=== PATIENT | female | born 1965 | race African-American/Black ===

== ENCOUNTER 2016-09-22 13:06 | Emergency (ER) | payer MEDICAID ==
[~2016-09-22] VITALS: Ht 172.7 cm; Wt 69.0 kg
[~2016-09-22 13:06] MED LIST: ABILIFY; ALBU25PO2 INH; FLUT1DIS5 INH; GUAI600T PO; LEVO500T15 PO; LURA80TA PO; NICO1PAT15 TD; OMEP20CA4 PO; P20 PO; SPIRIVA; TRAZ-129 PO
[2016-09-22 13:36] VITALS: BP 115/70
== END 2016-09-22 15:00 | disposition left against medical advice (07) ==
LOC: ER 13:06
DX: R05 Cough (principal); R09.81 Nasal congestion; Z53.21 Procedure and treatment not carried out due to patient leaving prior to being seen by health care provider

== ENCOUNTER 2017-12-28 17:45 | Emergency (ER) | payer OTHER ==
[~2017-12-28] VITALS: Ht 167.6 cm; Wt 68.0 kg
[~2017-12-28 17:45] MED LIST changes: -ABILIFY; +ARIP2TAB3 PO; -FLUT1DIS5 INH; -GUAI600T PO; +GUAI600T44 PO; -LEVO500T15 PO; -LURA80TA PO; -NICO1PAT15 TD; -SPIRIVA; +TIOT18CA3 INH; -TRAZ-129 PO; +TRAZ-212 PO; +VARE1TAB21 PO
[2017-12-28 17:57] VITALS: BP 126/69
== END 2017-12-28 18:24 | disposition home or self-care (01) ==
LOC: ER 17:45
DX: H92.02 Otalgia, left ear (principal); S00.462A Insect bite (nonvenomous) of left ear, initial encounter; J44.9 Chronic obstructive pulmonary disease, unspecified; F31.9 Bipolar disorder, unspecified; W57.XXXA Bitten or stung by nonvenomous insect and other nonvenomous arthropods, initial encounter; Y93.9 Activity, unspecified; Y92.9 Unspecified place or not applicable; Z88.2 Allergy status to sulfonamides
CPT/HCPCS: 99283

== ENCOUNTER 2018-01-11 21:23 | Emergency (ER) | payer MEDICAID, OTHER ==
[~2018-01-11] VITALS: Ht 167.6 cm; Wt 69.0 kg
[2018-01-12] MEDS ORDERED: KETOROLAC 60MG/2ML VIAL IM ONE (01:30)
[2018-01-12 03:15] VITALS: BP 98/59
== END 2018-01-12 03:17 | disposition home or self-care (01) ==
LOC: ER 21:23
DX: H60.91 Unspecified otitis externa, right ear (principal); J44.9 Chronic obstructive pulmonary disease, unspecified; F31.9 Bipolar disorder, unspecified; F17.200 Nicotine dependence, unspecified, uncomplicated; Z88.2 Allergy status to sulfonamides; Z79.899 Other long term (current) drug therapy
CPT/HCPCS: 87070; 87430; 96372; 99284; J1885

== ENCOUNTER 2018-01-17 15:58 | Emergency (ER) | payer OTHER ==
[~2018-01-17] VITALS: Ht 167.6 cm; Wt 73.0 kg
[2018-01-17 16:00] VITALS: BP 100/76
== END 2018-01-17 19:27 | disposition left against medical advice (07) ==
LOC: ER 15:58
DX: H92.03 Otalgia, bilateral (principal)
CPT/HCPCS: 99281

== ENCOUNTER 2018-09-24 23:58 | Emergency (ER) | payer MEDICAID, OTHER ==
[~2018-09-24] VITALS: Ht 167.6 cm; Wt 75.0 kg
[2018-09-25] MEDS ORDERED: ASPIRIN 81MG TABLET PO ONE (01:30)
[2018-09-25 01:47] LABS: BASOPHILS % 0.7 % (0.0-2.0); EOSINOPHILS % 2.3 % (0.0-5.0); HEMATOCRIT. 38.6 % (36.0-48.0); HEMOGLOBIN. 12.8 g/dL (12.0-16.0); LYMPHOCYTES % 31.5 % (20.0-50.0); MEAN CORPUSCULAR VOLUME 93.7 fL (81.0-99.0); MEAN PLATELET VOLUME 7.5 fl (7.4-10.4); MONOCYTES % 6.1 % (2.0-8.0); NEUTROPHILS % 59.4 % (40.0-76.0); PLATELET 218 x1000/uL (130-400); RED BLOOD CELL COUNT 4.12 mill/uL (4.2-5.4); RED CELL DISTRIBUTION WIDTH 14.6 % (11.6-14.6)
[2018-09-25 01:50] LABS: CHLORIDE 111 mEq/L (98-107)
[2018-09-25] MEDS ORDERED: IPRATROPIUM BROMIDE (0.02%) 0.5MG/2.5ML NEB HHN STA ×2 (03:02→05:24)
[2018-09-25] MEDS ORDERED: PREDNISONE 20MG TABLET PO STA (03:02)
[2018-09-25] MEDS ORDERED: ALBUTEROL (0.083%) 2.5MG/3ML NEB HHN STA ×2 (03:02→05:24)
[2018-09-25 06:58] VITALS: BP 117/48
== END 2018-09-25 07:00 | disposition home or self-care (01) ==
LOC: ER 23:58
DX: J44.1 Chronic obstructive pulmonary disease with (acute) exacerbation (principal); F17.200 Nicotine dependence, unspecified, uncomplicated; F31.9 Bipolar disorder, unspecified; Z98.890 Other specified postprocedural states; Z88.2 Allergy status to sulfonamides; Z79.899 Other long term (current) drug therapy
CPT/HCPCS: 36415; 71045; 80053; 83880; 84484; 85025; 93005; 94644; 99285; J7512; J7611; Z7610

== ENCOUNTER 2018-10-05 19:10 | Emergency (ER) | payer OTHER ==
[~2018-10-05] VITALS: Ht 162.6 cm; Wt 69.0 kg
[2018-10-05] MEDS ORDERED: IPRATROPIUM BROMIDE (0.02%) 0.5MG/2.5ML NEB HHN STA (23:16)
[2018-10-05] MEDS ORDERED: MAGNESIUM 2 G PREMIX 50 ML IV STA (23:16)
[2018-10-05] MEDS ORDERED: METHYLPREDNISOLONE SOD SUCC 125 MG/2 ML VIAL IV STA (23:16)
[2018-10-05] MEDS ORDERED: ALBUTEROL (0.083%) 2.5MG/3ML NEB HHN STA (23:16)
[2018-10-06 00:05] LABS: HEMOGLOBIN 11.6 g/dL (12.0-16.0); MEAN CORPUSCULAR HEMOGLOBIN 31.7 pg (28.0-32.0); MEAN CORPUSCULAR VOLUME 92.8 fL (81.0-99.0); PLATELET 223 x1000/uL (130-400); RED BLOOD CELL COUNT 3.67 mill/uL (4.2-5.4); RED CELL DISTRIBUTION WIDTH 14.4 % (11.6-14.6)
[2018-10-06 00:10] LABS: CHLORIDE 107 mEq/L (98-107)
[2018-10-06 03:53] VITALS: BP 116/70
== END 2018-10-06 04:00 | disposition home or self-care (01) ==
LOC: ER 19:10
DX: J44.1 Chronic obstructive pulmonary disease with (acute) exacerbation (principal); F17.210 Nicotine dependence, cigarettes, uncomplicated
CPT/HCPCS: 36415; 71045; 80053; 84484; 85027; 93005; 94644; 96365; 96366; 96375; 99285; J2930; J3475; J7611; Z7610

== ENCOUNTER 2018-11-25 17:44 | Emergency (ER) | payer OTHER ==
[~2018-11-25] VITALS: Ht 167.6 cm; Wt 72.0 kg
[~2018-11-25 17:44] MED LIST changes: -TRAZ-212 PO; +TRAZ-251 PO
[2018-11-25] MEDS ORDERED: ASPIRIN 81MG TABLET PO ONE (18:15)
[2018-11-25] MEDS ORDERED: IPRATROPIUM BROMIDE (0.02%) 0.5MG/2.5ML NEB HHN STA (18:45)
[2018-11-25] MEDS ORDERED: METHYLPREDNISOLONE SOD SUCC 125 MG/2 ML VIAL IV STA (18:45)
[2018-11-25] MEDS ORDERED: ALBUTEROL (0.083%) 2.5MG/3ML NEB HHN STA (18:45)
[2018-11-25 19:11] LABS: BASOPHILS % 0.8 % (0.0-2.0); EOSINOPHILS % 2.6 % (0.0-5.0); HEMATOCRIT. 39.9 % (36.0-48.0); HEMOGLOBIN. 13.3 g/dL (12.0-16.0); LYMPHOCYTES % 42.4 % (20.0-50.0); MEAN CORPUSCULAR HEMOGLOBIN 31.3 pg (28.0-32.0); MEAN CORPUSCULAR VOLUME 94.3 fL (81.0-99.0); MEAN PLATELET VOLUME 8.2 fl (7.4-10.4); MONOCYTES % 5.4 % (2.0-8.0); NEUTROPHILS % 48.8 % (40.0-76.0); PLATELET 235 x1000/uL (130-400); RED BLOOD CELL COUNT 4.24 mill/uL (4.2-5.4); RED CELL DISTRIBUTION WIDTH 13.9 % (11.6-14.6)
[2018-11-25 19:24] LABS: CHLORIDE 106 mEq/L (98-107)
[2018-11-25 20:06] VITALS: BP 107/58
== END 2018-11-25 20:19 | disposition home or self-care (01) ==
LOC: ER 17:44
DX: J45.901 Unspecified asthma with (acute) exacerbation (principal); F31.9 Bipolar disorder, unspecified; J44.9 Chronic obstructive pulmonary disease, unspecified; F17.200 Nicotine dependence, unspecified, uncomplicated; Z79.899 Other long term (current) drug therapy; Z88.2 Allergy status to sulfonamides
CPT/HCPCS: 36415; 71045; 80053; 83880; 84484; 85025; 93005; 94644; 96374; 99285; J2930; J7611

== ENCOUNTER 2018-12-14 19:34 | Emergency (ER) | payer OTHER ==
[~2018-12-14] VITALS: Ht 170.2 cm; Wt 73.0 kg
[2018-12-14] MEDS ORDERED: ALBUTEROL (0.083%) 2.5MG/3ML NEB HHN STA (20:06)
[2018-12-14] MEDS ORDERED: IPRATROPIUM BROMIDE (0.02%) 0.5MG/2.5ML NEB HHN STA (20:06)
[2018-12-14] MEDS ORDERED: METHYLPREDNISOLONE SOD SUCC 125 MG/2 ML VIAL IV STA (20:06)
[2018-12-14] MEDS ORDERED: NITROGLYCERIN 0.4MG TABLET SL SL PRN (20:15)
[2018-12-14] MEDS ORDERED: ASPIRIN 81MG TABLET PO ONE (20:15)
[2018-12-14 20:33] LABS: CHLORIDE 106 mEq/L (98-107)
[2018-12-14 20:35] LABS: BASOPHILS % 1.2 % (0.0-2.0); EOSINOPHILS % 2.7 % (0.0-5.0); HEMATOCRIT. 39.7 % (36.0-48.0); HEMOGLOBIN. 13.5 g/dL (12.0-16.0); MEAN CORPUSCULAR HEMOGLOBIN 32.2 pg (28.0-32.0); MEAN CORPUSCULAR VOLUME 94.5 fL (81.0-99.0); MEAN PLATELET VOLUME 8.3 fl (7.4-10.4); MONOCYTES % 6.1 % (2.0-8.0); PLATELET 232 x1000/uL (130-400); RED CELL DISTRIBUTION WIDTH 13.6 % (11.6-14.6)
[2018-12-14 22:56] VITALS: BP 110/74
== END 2018-12-14 23:05 | disposition home or self-care (01) ==
LOC: ER 19:34
DX: J44.9 Chronic obstructive pulmonary disease, unspecified (principal); R07.89 Other chest pain; R06.02 Shortness of breath; F31.9 Bipolar disorder, unspecified; Z79.899 Other long term (current) drug therapy; Z88.2 Allergy status to sulfonamides
CPT/HCPCS: 36415; 71045; 80053; 83880; 84484; 85025; 93005; 96374; 99284; J2930

== ENCOUNTER 2019-03-17 07:39 | Emergency (ER) | payer SELFPAY ==
[~2019-03-17] VITALS: Ht 170.2 cm; Wt 82.0 kg
[2019-03-17] MEDS ORDERED: ALBUTEROL (0.083%) 2.5MG/3ML NEB HHN STA (08:18)
[2019-03-17] MEDS ORDERED: PREDNISONE 20MG TABLET PO STA (08:18)
[2019-03-17] MEDS ORDERED: IPRATROPIUM BROMIDE (0.02%) 0.5MG/2.5ML NEB HHN STA (08:18)
[2019-03-17 09:30] LABS: BASOPHILS % 0.9 % (0.0-2.0); EOSINOPHILS % 0.7 % (0.0-5.0); HEMATOCRIT. 39.8 % (36.0-48.0); HEMOGLOBIN. 13.5 g/dL (12.0-16.0); LYMPHOCYTES % 23.7 % (20.0-50.0); MONOCYTES % 7.5 % (2.0-8.0); NEUTROPHILS % 67.2 % (40.0-76.0); PLATELET 279 x1000/uL (130-400); RED BLOOD CELL COUNT 4.23 mill/uL (4.2-5.4); RED CELL DISTRIBUTION WIDTH 13.9 % (11.6-14.6)
[2019-03-17 09:31] LABS: CHLORIDE 104 mEq/L (98-107)
[2019-03-17 12:33] VITALS: BP 134/113
== END 2019-03-17 12:34 | disposition home or self-care (01) ==
LOC: ER 07:53
DX: J44.1 Chronic obstructive pulmonary disease with (acute) exacerbation (principal); I10 Essential (primary) hypertension; F17.210 Nicotine dependence, cigarettes, uncomplicated; Z79.899 Other long term (current) drug therapy; Z88.2 Allergy status to sulfonamides
CPT/HCPCS: 36415; 71045; 80053; 83880; 84484; 85025; 93005; 94640; 99284; 99406; J7512; J7611; Z7610

== ENCOUNTER 2019-05-10 11:24 | Emergency (ER) | payer SELFPAY ==
[~2019-05-10] VITALS: Ht 167.6 cm; Wt 65.7 kg
[2019-05-10] MEDS ORDERED: KETOROLAC 15MG/ML VIAL IM ONE (14:15)
[2019-05-10 16:57] VITALS: BP 125/79
== END 2019-05-10 16:59 | disposition home or self-care (01) ==
LOC: ER 11:24
DX: J06.9 Acute upper respiratory infection, unspecified (principal); J44.9 Chronic obstructive pulmonary disease, unspecified; I10 Essential (primary) hypertension; M79.10 Myalgia, unspecified site; R53.83 Other fatigue; R07.0 Pain in throat; Z88.2 Allergy status to sulfonamides; Z79.899 Other long term (current) drug therapy
CPT/HCPCS: 71045; 87070; 87430; 87804; 96372; 99284; J1885

== ENCOUNTER 2019-08-01 05:11 | Emergency (ER) | payer SELFPAY ==
[~2019-08-01] VITALS: Ht 170.2 cm; Wt 66.0 kg
[2019-08-01 06:36] VITALS: BP 149/98
== END 2019-08-01 06:37 | disposition home or self-care (01) ==
LOC: ER 05:54
DX: I10 Essential (primary) hypertension (principal); Z76.0 Encounter for issue of repeat prescription; J44.9 Chronic obstructive pulmonary disease, unspecified; Z88.2 Allergy status to sulfonamides; Z79.899 Other long term (current) drug therapy
CPT/HCPCS: 99283

== ENCOUNTER 2020-02-15 16:27 | Emergency (ER) | payer MEDICAID ==
[~2020-02-15] VITALS: Ht 167.6 cm; Wt 65.7 kg
[2020-02-15] MEDS ORDERED: IPRATROPIUM BROMIDE (0.02%) 0.5MG/2.5ML NEB HHN STA (16:45)
[2020-02-15] MEDS ORDERED: ALBUTEROL (0.083%) 2.5MG/3ML NEB HHN STA (16:45)
[2020-02-15] MEDS ORDERED: PREDNISONE 20MG TABLET PO STA (16:45)
[2020-02-15] MEDS ORDERED: ACETAMINOPHEN WITH CODEINE 300/30MG TABLET PO STA (16:45)
[2020-02-15 17:42] LABS: BASOPHILS % 0.5 % (0.0-2.0); EOSINOPHILS % 1.2 % (0.0-5.0); HEMATOCRIT. 33.2 % (36.0-48.0); HEMOGLOBIN. 11.2 g/dL (12.0-16.0); LYMPHOCYTES % 21.6 % (20.0-50.0); MEAN CORPUSCULAR HEMOGLOBIN 31.7 pg (28.0-32.0); MEAN CORPUSCULAR VOLUME 94.2 fL (81.0-99.0); MEAN PLATELET VOLUME 7.9 fl (7.4-10.4); MONOCYTES % 6.6 % (2.0-8.0); NEUTROPHILS % 70.1 % (40.0-76.0); PLATELET 224 x1000/uL (130-400); RED BLOOD CELL COUNT 3.52 mill/uL (4.2-5.4); RED CELL DISTRIBUTION WIDTH 13.8 % (11.6-14.6)
[2020-02-15 17:47] LABS: CHLORIDE 106 mEq/L (98-107)
[2020-02-15 18:59] VITALS: BP 118/78
== END 2020-02-15 18:59 | disposition home or self-care (01) ==
LOC: ER 16:27
DX: J44.1 Chronic obstructive pulmonary disease with (acute) exacerbation (principal); R07.89 Other chest pain; F31.9 Bipolar disorder, unspecified; Z98.890 Other specified postprocedural states; Z88.2 Allergy status to sulfonamides
CPT/HCPCS: 36415; 71045; 80053; 83880; 84484; 85025; 93005; 94640; 99285; J7512; Z7610

== ENCOUNTER 2020-04-06 10:40 | Emergency (ER) | payer MEDICAID ==
[~2020-04-06] VITALS: Ht 167.6 cm; Wt 63.5 kg
[2020-04-06] MEDS ORDERED: TRAMADOL 50MG TABLET PO ONE (11:00)
[2020-04-06] MEDS ORDERED: ALBUTEROL (0.083%) 2.5MG/3ML NEB HHN STA (11:26)
[2020-04-06] MEDS ORDERED: IPRATROPIUM BROMIDE (0.02%) 0.5MG/2.5ML NEB HHN STA (11:26)
[2020-04-06 14:33] VITALS: BP 139/90
== END 2020-04-06 14:40 | disposition home or self-care (01) ==
LOC: ER 10:40
DX: S20.212A Contusion of left front wall of thorax, initial encounter (principal); J44.9 Chronic obstructive pulmonary disease, unspecified; I10 Essential (primary) hypertension
CPT/HCPCS: 71101; 94640; 99283; Z7610

== ENCOUNTER 2020-04-08 10:15 | Emergency (ER) | payer OTHER, MEDICAID ==
[~2020-04-08] VITALS: Ht 167.6 cm; Wt 65.0 kg
[2020-04-08] MEDS ORDERED: PREDNISONE 20MG TABLET PO STA (11:55)
[2020-04-08] MEDS ORDERED: ALBUTEROL (0.083%) 2.5MG/3ML NEB HHN STA (11:55)
[2020-04-08] MEDS ORDERED: IPRATROPIUM BROMIDE (0.02%) 0.5MG/2.5ML NEB HHN STA (11:55)
[2020-04-08] MEDS ORDERED: AZITHROMYCIN 500 MG TABLET PO ONE (12:00)
[2020-04-08] MEDS ORDERED: IPRATROPIUM/ALBUTEROL 0.5-3(2.5)MG/3ML NEB HHN ONE (13:30)
[2020-04-08 15:30] VITALS: BP 136/69
[2020-04-08] MEDS ORDERED: HYDROCODONE/ACETAMINOPHEN 5/325MG TABLET PO ONE (15:30)
== END 2020-04-08 16:18 | disposition home or self-care (01) ==
LOC: ER 10:15
DX: J44.1 Chronic obstructive pulmonary disease with (acute) exacerbation (principal); Z88.2 Allergy status to sulfonamides; Z79.899 Other long term (current) drug therapy; Z20.828 Contact with and (suspected) exposure to other viral communicable diseases
CPT/HCPCS: 87635; 94640; 99284; C9803; J7512; Z7610

== ENCOUNTER 2020-07-04 06:49 | Emergency (ER) | payer OTHER, MEDICAID ==
[~2020-07-04] VITALS: Ht 167.6 cm; Wt 63.0 kg
[~2020-07-04 06:49] MED LIST changes: +ALBU18HF2 IH; +LURA120T PO
[2020-07-04] MEDS ORDERED: KETOROLAC 60MG/2ML VIAL IM ONE (07:30)
[2020-07-04 07:37] VITALS: BP 144/81
[2020-07-04] MEDS ORDERED: IBUP-2029 MT (09:03)
== END 2020-07-04 09:30 | disposition home or self-care (01) ==
LOC: ER 07:16
DX: M17.0 Bilateral primary osteoarthritis of knee (principal); M76.41 Tibial collateral bursitis [Pellegrini-Stieda], right leg; R03.0 Elevated blood-pressure reading, without diagnosis of hypertension
CPT/HCPCS: 73560; 96372; 99283; J1885

== ENCOUNTER 2020-08-12 21:50 | Inpatient (IN) | payer MEDICAID, OTHER ==
[~2020-08-12] VITALS: Ht 170.2 cm; Wt 64.9 kg
[~2020-08-12 21:50] MED LIST changes: +IBUP-2029 MT
[2020-08-12 22:47] LABS: BASOPHILS % 1.6 % (0.0-2.0); EOSINOPHILS % 0.1 % (0.0-5.0); HEMATOCRIT. 33.6 % (36.0-48.0); HEMOGLOBIN. 11.5 g/dL (12.0-16.0); LYMPHOCYTES % 9.4 % (20.0-50.0); MEAN CORPUSCULAR HEMOGLOBIN 30.9 pg (28.0-32.0); MEAN CORPUSCULAR VOLUME 90.5 fL (81.0-99.0); MEAN PLATELET VOLUME 7.8 fl (7.4-10.4); MONOCYTES % 2.1 % (2.0-8.0); NEUTROPHILS % 86.8 % (40.0-76.0); PLATELET 294 x1000/uL (130-400); RED BLOOD CELL COUNT 3.71 mill/uL (4.2-5.4); RED CELL DISTRIBUTION WIDTH 14.2 % (11.6-14.6)
[2020-08-12 22:51] LABS: CHLORIDE 105 mEq/L (98-107)
[2020-08-12 22:55] LABS: ETHANOL BLOOD 48 mg/dL
[2020-08-13] MEDS ORDERED: ASPIRIN 325MG EC TABLET PO ONE (00:30)
[2020-08-13 08:40] VITALS: BP 136/85
[2020-08-13 08:45] VITALS: BP 136/85
[2020-08-13] MEDS ORDERED: IPRATROPIUM/ALBUTEROL 0.5-3(2.5)MG/3ML NEB HHN PRN (09:00)
[2020-08-13] MEDS ORDERED: ONDANSETRON HCL 4MG/2ML INJ IV PRN (09:00)
[2020-08-13] MEDS ORDERED: LORAZEPAM 2MG/ML CPJ IV PRN (09:00)
[2020-08-13] MEDS ORDERED: ACETAMINOPHEN 325MG TABLET PO PRN (09:00)
[2020-08-13 09:30] VITALS: BP 139/65
[2020-08-13 12:00] VITALS: BP 128/62
[2020-08-13] MEDS: THIAMINE HCL 100MG TABLET PO SCH (12:06)
[2020-08-13 13:24] LABS: CLARITY URINE CLEAR (CLEAR); COLOR URINE YELLOW (YELLOW); KETONES URINE TRACE (NEGATIVE); LEUKOCYTE ESTERASE URINE TRACE (NEGATIVE); NITRITE URINE NEGATIVE (NEGATIVE); OCCULT BLOOD URINE NEGATIVE (NEGATIVE); PH URINE 6.5 (4.5-8.0); PROTEIN URINE NEGATIVE (NEGATIVE); SPECIFIC GRAVITY URINE 1.023 (1.005-1.030)
[2020-08-13 13:37] LABS: *AMPHETAMINES SCREEN URINE PRESUMTIVE POSITIVE (NEGATIVE); *BARBITURATES SCREEN URINE NEGATIVE (NEGATIVE); *BENZODIAZEPINES SCREEN URINE NEGATIVE (NEGATIVE); *COCAINE SCREEN URINE PRESUMTIVE POSITIVE (NEGATIVE); CANNABINOID URINE SCREEN PRESUMTIVE POSITIVE (NEGATIVE); METHADONE URINE SCREEN NEGATIVE (NEGATIVE); OPIATES URINE SCREEN PRESUMTIVE POSITIVE (NEGATIVE)
[2020-08-13 13:39] LABS: PHENCYCLIDINE URINE SCREEN NEGATIVE (NEGATIVE)
[2020-08-13 16:00] VITALS: BP 131/77
[2020-08-13 20:42] VITALS: BP 127/64
[2020-08-14 00:32] VITALS: BP 119/81
[2020-08-14 04:00] VITALS: BP 129/78
[2020-08-14 07:49] LABS: CHLORIDE 109 mEq/L (98-107)
[2020-08-14 08:00] VITALS: BP 134/86
[2020-08-14 08:02] LABS: BASOPHILS % 0.7 % (0.0-2.0); EOSINOPHILS % 4.9 % (0.0-5.0); HEMATOCRIT. 36.4 % (36.0-48.0); HEMOGLOBIN. 12.3 g/dL (12.0-16.0); LYMPHOCYTES % 31.9 % (20.0-50.0); MEAN CORPUSCULAR HEMOGLOBIN 30.7 pg (28.0-32.0); MEAN CORPUSCULAR VOLUME 90.7 fL (81.0-99.0); MEAN PLATELET VOLUME 8.2 fl (7.4-10.4); MONOCYTES % 6.6 % (2.0-8.0); NEUTROPHILS % 55.9 % (40.0-76.0); PLATELET 282 x1000/uL (130-400); RED BLOOD CELL COUNT 4.01 mill/uL (4.2-5.4); RED CELL DISTRIBUTION WIDTH 13.7 % (11.6-14.6)
[2020-08-14] MEDS ORDERED: ALBU18HF2 IH (08:33)
[2020-08-14] MEDS ORDERED: TIOT18CA3 INH (08:33)
[2020-08-14] MEDS: THIAMINE HCL 100MG TABLET PO SCH (09:34)
[2020-08-14 09:41] VITALS: BP 134/86
== END 2020-08-14 11:15 | disposition home or self-care (01) | DRG 48 ==
LOC: ER 21:50 → 6WST 08-13 01:03 → EDBEDREQDT 08-13 01:06 → EDBEDREQ 08-13 01:06 → EDBEDREQTM 08-13 01:06 → ENRESERV 08-13 07:40
PROVIDERS: ADMIT Internal Medicine; ATTEND Internal Medicine
DX: G90.8 Other disorders of autonomic nervous system (principal); F10.129 Alcohol abuse with intoxication, unspecified; F14.10 Cocaine abuse, uncomplicated; F31.9 Bipolar disorder, unspecified; J44.9 Chronic obstructive pulmonary disease, unspecified; F17.210 Nicotine dependence, cigarettes, uncomplicated; F15.10 Other stimulant abuse, uncomplicated; Y90.2 Blood alcohol level of 40-59 mg/100 ml; F12.10 Cannabis abuse, uncomplicated; Z71.51 Drug abuse counseling and surveillance of drug abuser; Z88.2 Allergy status to sulfonamides; Z79.899 Other long term (current) drug therapy
CPT/HCPCS: 36415; 71045; 80048; 80053; 80305; 80320; 81003; 83036; 83880; 84484; 85025; 93005; 94640; 97161; 99291; G0480

== ENCOUNTER 2020-09-10 17:06 | Emergency (ER) | payer OTHER ==
[~2020-09-10] VITALS: Ht 172.7 cm; Wt 64.0 kg
[~2020-09-10 17:06] MED LIST changes: -P20 PO
[2020-09-10 17:51] LABS: BASOPHILS % 1.4 % (0.0-2.0); EOSINOPHILS % 1.4 % (0.0-5.0); HEMATOCRIT. 37.6 % (36.0-48.0); HEMOGLOBIN. 12.5 g/dL (12.0-16.0); LYMPHOCYTES % 35.5 % (20.0-50.0); MEAN CORPUSCULAR HEMOGLOBIN 30.6 pg (28.0-32.0); MEAN CORPUSCULAR VOLUME 92.3 fL (81.0-99.0); MEAN PLATELET VOLUME 7.7 fl (7.4-10.4); MONOCYTES % 7.1 % (2.0-8.0); NEUTROPHILS % 54.6 % (40.0-76.0); PLATELET 308 x1000/uL (130-400); RED BLOOD CELL COUNT 4.07 mill/uL (4.2-5.4); RED CELL DISTRIBUTION WIDTH 14.3 % (11.6-14.6)
[2020-09-10 17:57] LABS: CHLORIDE 106 mEq/L (98-107)
[2020-09-10 18:13] LABS: ETHANOL BLOOD 322 mg/dL
[2020-09-10] MEDS ORDERED: DEXTROSE 50% WATER 50ML SYRINGE IV NR (19:30)
[2020-09-10] MEDS ORDERED: DEXTROSE 50% WATER 50ML SYRINGE IV ONE (21:45)
[2020-09-10] MEDS ORDERED: DEXT 10% WATER 1,000 ML IV SCH (21:45)
[2020-09-10 23:30] VITALS: BP 123/76
== END 2020-09-11 00:10 | disposition home or self-care (01) ==
LOC: ER 17:06
DX: J44.1 Chronic obstructive pulmonary disease with (acute) exacerbation (principal); F10.129 Alcohol abuse with intoxication, unspecified; Z88.2 Allergy status to sulfonamides; Z79.899 Other long term (current) drug therapy; Y90.9 Presence of alcohol in blood, level not specified
CPT/HCPCS: 36415; 80048; 80320; 82962; 85025; 96374; 99285; G0480

== ENCOUNTER 2020-09-11 04:58 | Emergency (ER) | payer MEDICAID, OTHER ==
[~2020-09-11] VITALS: Ht 167.6 cm; Wt 64.0 kg
[2020-09-11 06:00] VITALS: BP 144/100
[2020-09-11] MEDS ORDERED: ACETAMINOPHEN 325MG TABLET PO STA (06:07)
== END 2020-09-11 07:00 | disposition home or self-care (01) ==
LOC: ER 04:58
DX: R51.9 Headache, unspecified (principal); J44.1 Chronic obstructive pulmonary disease with (acute) exacerbation; Z88.2 Allergy status to sulfonamides; Z79.899 Other long term (current) drug therapy; Z81.1 Family history of alcohol abuse and dependence
CPT/HCPCS: 99281; 99282

== ENCOUNTER 2021-11-07 12:38 | Emergency (ER) | payer MEDICAID ==
[~2021-11-07] VITALS: Ht 167.6 cm; Wt 70.0 kg
[2021-11-07 15:30] VITALS: BP 129/94
[2021-11-07] MEDS ORDERED: IBUPROFEN 400MG TABLET PO ONE (15:30)
[2021-11-07] MEDS ORDERED: METHOCARBAMOL 750MG TABLET PO SCH (15:30)
[2021-11-07] MEDS ORDERED: LIDOCAINE 5% PATCH TOP SCH (15:30)
[2021-11-07] MEDS ORDERED: ACETAMINOPHEN 325MG TABLET PO ONE (15:30)
[2021-11-07] MEDS ORDERED: IBUP-2028 MT (16:21)
[2021-11-07] MEDS ORDERED: METH-653 MT (16:21)
[2021-11-07] MEDS ORDERED: LIDO1ADH23 TP (16:21)
[2021-11-07] MEDS ORDERED: TOPUD PO (16:21)
== END 2021-11-07 16:42 | disposition home or self-care (01) ==
LOC: ER 13:45
DX: M47.892 Other spondylosis, cervical region (principal); Z79.899 Other long term (current) drug therapy; M54.2 Cervicalgia
CPT/HCPCS: 72040; 99284

== ENCOUNTER 2022-02-04 16:00 | Emergency (ER) | payer OTHER ==
[~2022-02-04] VITALS: Ht 167.6 cm; Wt 60.0 kg
[~2022-02-04 16:00] MED LIST changes: +IBUP-2028 MT; +LIDO1ADH23 TP; +METH-653 MT; +TOPUD PO
[2022-02-04 16:04] VITALS: BP 113/55
[2022-02-04] MEDS ORDERED: TETANUS AND DIPHTHERIA TOX/PF 0.5ML SYR (ADULT) IM ONE (17:45)
[2022-02-04] MEDS ORDERED: DIPHENHYDRAMINE 50MG/ML VIAL IM ONE (17:45)
[2022-02-04] MEDS ORDERED: TETANUS, DIPHTHERIA, PERTUSSIS VAC/PF 0.5ML (>10YR OLD) IM ONE (18:00)
[2022-02-04] MEDS ORDERED: DIPH25TA26 MT (18:27)
== END 2022-02-04 18:35 | disposition home or self-care (01) ==
LOC: ER 16:00
DX: S40.861A Insect bite (nonvenomous) of right upper arm, initial encounter (principal); Z79.899 Other long term (current) drug therapy; Z59.01 Sheltered homelessness; X58.XXXA Exposure to other specified factors, initial encounter; Y93.89 Activity, other specified; Y92.89 Other specified places as the place of occurrence of the external cause; Y99.8 Other external cause status
CPT/HCPCS: 90471; 90715; 96372; 99284; J1200; 90714

== ENCOUNTER 2022-02-15 11:33 | Emergency (ER) | payer OTHER ==
[~2022-02-15] VITALS: Ht 167.6 cm; Wt 64.0 kg
[~2022-02-15 11:33] MED LIST changes: +DIPH25TA26 MT
[2022-02-15] MEDS ORDERED: SODIUM CHLORIDE 0.9% 1,000 ML IV ONE (16:30)
[2022-02-15 16:59] LABS: CHLORIDE 103 mEq/L (98-107)
[2022-02-15 17:06] LABS: BASOPHILS % 0.8 % (0.0-2.0); EOSINOPHILS % 3.7 % (0.0-5.0); HEMATOCRIT. 36.8 % (36.0-48.0); HEMOGLOBIN. 12.4 g/dL (12.0-16.0); LYMPHOCYTES % 50.2 % (20.0-50.0); MEAN CORPUSCULAR HEMOGLOBIN 30.8 pg (28.0-32.0); MEAN CORPUSCULAR VOLUME 91.1 fL (81.0-99.0); MEAN PLATELET VOLUME 7.8 fl (7.4-10.4); MONOCYTES % 7.2 % (2.0-8.0); NEUTROPHILS % 38.1 % (40.0-76.0); PLATELET 299 x1000/uL (130-400); RED BLOOD CELL COUNT 4.04 mill/uL (4.2-5.4); RED CELL DISTRIBUTION WIDTH 14.1 % (11.6-14.6)
[2022-02-15 17:14] LABS: D-DIMER 0.38 mg/L FEU (<0.50); PARTIAL THROMBOPLASTIN TIME 26.2 sec (23.4-31.0); PROTHROMBIN TIME 10.3 sec (9.6-11.0)
[2022-02-15] MEDS ORDERED: ASPIRIN 325MG EC TABLET PO ONE (18:45)
[2022-02-15 22:45] VITALS: BP 118/75
== END 2022-02-15 22:51 | disposition short-term general hospital (02) ==
LOC: ER 11:33 → CANBEDREQ 02-16 00:46
DX: R55 Syncope and collapse (principal); R07.89 Other chest pain; J44.1 Chronic obstructive pulmonary disease with (acute) exacerbation; Z79.899 Other long term (current) drug therapy; Z88.2 Allergy status to sulfonamides
CPT/HCPCS: 36415; 70450; 71045; 80053; 83880; 84484; 85025; 85379; 85610; 85730; 93005; 96360; 96361; 99285; J7030

== ENCOUNTER 2022-02-24 03:04 | Emergency (ER) | payer OTHER ==
[~2022-02-24] VITALS: Ht 167.6 cm; Wt 68.0 kg
[2022-02-24 05:03] LABS: BASOPHILS % 0.5 % (0.0-2.0); EOSINOPHILS % 0.9 % (0.0-5.0); HEMATOCRIT. 37.9 % (36.0-48.0); HEMOGLOBIN. 12.7 g/dL (12.0-16.0); LYMPHOCYTES % 18.8 % (20.0-50.0); MEAN CORPUSCULAR HEMOGLOBIN 30.2 pg (28.0-32.0); MEAN PLATELET VOLUME 7.5 fl (7.4-10.4); MONOCYTES % 5.8 % (2.0-8.0); PLATELET 286 x1000/uL (130-400); RED BLOOD CELL COUNT 4.21 mill/uL (4.2-5.4); RED CELL DISTRIBUTION WIDTH 13.9 % (11.6-14.6)
[2022-02-24 05:11] LABS: CHLORIDE 103 mEq/L (98-107)
[2022-02-24 06:30] VITALS: BP 122/68
== END 2022-02-24 07:37 | disposition home or self-care (01) ==
LOC: ER 03:04
DX: R07.89 Other chest pain (principal); F10.129 Alcohol abuse with intoxication, unspecified; Y90.9 Presence of alcohol in blood, level not specified; J44.9 Chronic obstructive pulmonary disease, unspecified; Z88.2 Allergy status to sulfonamides
CPT/HCPCS: 36415; 71045; 80053; 83880; 84484; 85025; 85379; 99284

== ENCOUNTER 2022-03-23 06:14 | Inpatient (IN) | payer OTHER ==
[~2022-03-23] VITALS: Ht 165.1 cm; Wt 76.2 kg
[2022-03-23 09:16] LABS: BASOPHILS % 0.8 % (0.0-2.0); EOSINOPHILS % 0.5 % (0.0-5.0); HEMATOCRIT. 38.3 % (36.0-48.0); HEMOGLOBIN. 12.5 g/dL (12.0-16.0); LYMPHOCYTES % 27.7 % (20.0-50.0); MEAN CORPUSCULAR HEMOGLOBIN 29.9 pg (28.0-32.0); MEAN CORPUSCULAR VOLUME 91.5 fL (81.0-99.0); MEAN PLATELET VOLUME 7.8 fl (7.4-10.4); PLATELET 280 x1000/uL (130-400); RED BLOOD CELL COUNT 4.19 mill/uL (4.2-5.4); RED CELL DISTRIBUTION WIDTH 14.4 % (11.6-14.6)
[2022-03-23 09:18] LABS: CHLORIDE 104 mEq/L (98-107)
[2022-03-23 17:49] VITALS: BP 108/67
[2022-03-23 17:50] VITALS: BP 108/67
[2022-03-23] MEDS ORDERED: ACETAMINOPHEN 325MG TABLET PO PRN (18:30)
[2022-03-23] MEDS ORDERED: DIPHENHYDRAMINE 25MG CAPSULE PO PRN (18:30)
[2022-03-23 20:00] VITALS: BP 122/65
[2022-03-23] MEDS: GUAIFENESIN 600MG ER TABLET PO SCH (21:20)
[2022-03-23] MEDS: METHOCARBAMOL 750MG TABLET PO SCH (21:20)
[2022-03-23] MEDS: TRAZODONE HCL 50MG TABLET PO SCH (21:20)
[2022-03-23] MEDS: ENOXAPARIN 40MG/0.4ML SYR SUBCUT SCH (21:21)
[2022-03-24] VITALS: BP 125/71
[2022-03-24 01:38] LABS: CREATINE KINASE MB FRACTION 1.3 ng/mL (0.5-3.6)
[2022-03-24 02:43] LABS: CREATINE KINASE MB FRACTION 1.3 ng/mL (0.5-3.6)
[2022-03-24 08:00] VITALS: BP_SYST 117; BP_SYST 139; BP_DIAS 88; BP_DIAS 90
[2022-03-24] MEDS: IPRATROPIUM/ALBUTEROL 0.5-3(2.5)MG/3ML NEB HHN SCH ×4 (08:04→20:14)
[2022-03-24] MEDS: ASPIRIN 81MG TABLET PO SCH (08:51)
[2022-03-24] MEDS: GUAIFENESIN 600MG ER TABLET PO SCH ×2 (08:51→21:40)
[2022-03-24] MEDS: OMEPRAZOLE 20MG CAPSULE EXTENDED RELEASE PO SCH (08:52)
[2022-03-24] MEDS: METHOCARBAMOL 750MG TABLET PO SCH ×2 (08:52→21:40)
[2022-03-24] MEDS: ARIPIPRAZOLE 2MG TABLET PO SCH (09:00)
[2022-03-24] MEDS ORDERED: PNEUMOCOCCAL 23-VAL P-SAC VAC 0.5 ML IM ONE (09:00)
[2022-03-24 09:25] LABS: BASOPHILS % 0.6 % (0.0-2.0); EOSINOPHILS % 2.7 % (0.0-5.0); HEMATOCRIT. 35.2 % (36.0-48.0); HEMOGLOBIN. 11.5 g/dL (12.0-16.0); LYMPHOCYTES % 48.1 % (20.0-50.0); MEAN CORPUSCULAR HEMOGLOBIN 29.8 pg (28.0-32.0); MEAN CORPUSCULAR VOLUME 91.5 fL (81.0-99.0); MEAN PLATELET VOLUME 8.7 fl (7.4-10.4); MONOCYTES % 6.8 % (2.0-8.0); NEUTROPHILS % 41.8 % (40.0-76.0); PLATELET 257 x1000/uL (130-400); RED BLOOD CELL COUNT 3.85 mill/uL (4.2-5.4); RED CELL DISTRIBUTION WIDTH 14.1 % (11.6-14.6)
[2022-03-24 09:27] LABS: CHLORIDE 106 mEq/L (98-107)
[2022-03-24 12:00] VITALS: BP 139/90
[2022-03-24 12:04] LABS: CREATINE KINASE MB FRACTION < 1.0 ng/mL (0.5-3.6)
[2022-03-24 16:00] VITALS: BP 128/68
[2022-03-24 20:00] VITALS: BP 130/71
[2022-03-24] MEDS: TRAZODONE HCL 50MG TABLET PO SCH (21:40)
[2022-03-24] MEDS: ENOXAPARIN 40MG/0.4ML SYR SUBCUT SCH (21:40)
[2022-03-25] VITALS: BP 124/71
[2022-03-25] MEDS: IPRATROPIUM/ALBUTEROL 0.5-3(2.5)MG/3ML NEB HHN SCH ×8 (00:10→23:47)
[2022-03-25 04:00] VITALS: BP 118/74
[2022-03-25 06:37] LABS: BASOPHILS % 0.5 % (0.0-2.0); EOSINOPHILS % 2.9 % (0.0-5.0); HEMATOCRIT. 34.1 % (36.0-48.0); HEMOGLOBIN. 11.4 g/dL (12.0-16.0); MEAN CORPUSCULAR HEMOGLOBIN 30.5 pg (28.0-32.0); MEAN CORPUSCULAR VOLUME 91.2 fL (81.0-99.0); MEAN PLATELET VOLUME 8.3 fl (7.4-10.4); MONOCYTES % 7.4 % (2.0-8.0); NEUTROPHILS % 51.2 % (40.0-76.0); PLATELET 232 x1000/uL (130-400); RED BLOOD CELL COUNT 3.74 mill/uL (4.2-5.4); RED CELL DISTRIBUTION WIDTH 13.8 % (11.6-14.6)
[2022-03-25 07:09] LABS: CHLORIDE 107 mEq/L (98-107)
[2022-03-25 08:00] VITALS: BP 120/69
[2022-03-25] MEDS: ASPIRIN 81MG TABLET PO SCH (08:46)
[2022-03-25] MEDS: OMEPRAZOLE 20MG CAPSULE EXTENDED RELEASE PO SCH (08:46)
[2022-03-25] MEDS: ARIPIPRAZOLE 2MG TABLET PO SCH (08:46)
[2022-03-25] MEDS: GUAIFENESIN 600MG ER TABLET PO SCH ×2 (08:46→21:32)
[2022-03-25] MEDS: METHOCARBAMOL 750MG TABLET PO SCH ×2 (08:46→21:32)
[2022-03-25] MEDS ORDERED: METHYLPREDNISOLONE SOD SUCC 40 MG/ML VIAL IV SCH ×2 (09:00→14:00)
[2022-03-25 11:55] LABS: BG BASE EXCESS 2.2 mmol/L (-2.0-2.0); BG CARBOXYHEMOGLOBIN 0.3 % (0.5-1.5); BG DEOXYHEMOGLOBIN 1.7 % (0.0-5.0); BG FRACTION INSPIRED OXYGEN 30; BG HCO3 ACT 27.1 mmol/L (22.0-26.0); BG METHEMOGLOBIN 0.3 % (0.0-1.5); BG OXYGEN SATURATION 98.3 % (92.0-98.5); BG OXYHEMOGLOBIN 97.7 % (94.0-97.0); BG PCO2 43.7 mmHg (35.0-45.0); BG PH 7.411 (7.350-7.450); BG SAMPLE SITE LEFT RADIAL; BG TOTAL HEMOGLOBIN 12.1 g/dL (12.0-18.0); BG VENT MODE NASAL CANNULA
[2022-03-25 12:00] VITALS: BP 99/56
[2022-03-25] MEDS ORDERED: ACETYLCYSTEINE 200MG/ML 20% VIAL 4ML INH SCH (14:00)
[2022-03-25 16:00] VITALS: BP 114/75
[2022-03-25] MEDS: PREDNISONE 20MG TABLET PO SCH (17:30)
[2022-03-25 19:39] LABS: *AMPHETAMINES SCREEN URINE NEGATIVE (NEGATIVE); *BARBITURATES SCREEN URINE NEGATIVE (NEGATIVE); *BENZODIAZEPINES SCREEN URINE NEGATIVE (NEGATIVE); *COCAINE SCREEN URINE PRESUMTIVE POSITIVE (NEGATIVE); CANNABINOID URINE SCREEN PRESUMTIVE POSITIVE (NEGATIVE); METHADONE URINE SCREEN NEGATIVE (NEGATIVE); OPIATES URINE SCREEN NEGATIVE (NEGATIVE); PHENCYCLIDINE URINE SCREEN NEGATIVE (NEGATIVE)
[2022-03-25 20:00] VITALS: BP 136/86
[2022-03-25] MEDS: BUDESONIDE 0.5MG/2ML NEB HHN SCH ×2 (20:40→20:49)
[2022-03-25] MEDS: TRAZODONE HCL 50MG TABLET PO SCH (21:33)
[2022-03-25] MEDS: ENOXAPARIN 40MG/0.4ML SYR SUBCUT SCH (21:34)
[2022-03-26] VITALS: BP 122/52
[2022-03-26 04:00] VITALS: BP 123/57
[2022-03-26] MEDS: OMEPRAZOLE 20MG CAPSULE EXTENDED RELEASE PO SCH (05:41)
[2022-03-26 08:00] VITALS: BP 126/78
[2022-03-26] MEDS: IPRATROPIUM/ALBUTEROL 0.5-3(2.5)MG/3ML NEB HHN SCH ×5 (08:26→23:47)
[2022-03-26] MEDS: BUDESONIDE 0.5MG/2ML NEB HHN SCH ×2 (08:27→20:02)
[2022-03-26 08:40] LABS: BASOPHILS % 0.4 % (0.0-2.0); HEMATOCRIT. 38.7 % (36.0-48.0); HEMOGLOBIN. 12.8 g/dL (12.0-16.0); LYMPHOCYTES % 11.7 % (20.0-50.0); MEAN CORPUSCULAR HEMOGLOBIN 30.2 pg (28.0-32.0); MEAN CORPUSCULAR VOLUME 91.6 fL (81.0-99.0); MEAN PLATELET VOLUME 8.6 fl (7.4-10.4); MONOCYTES % 6.4 % (2.0-8.0); NEUTROPHILS % 81.5 % (40.0-76.0); PLATELET 270 x1000/uL (130-400); RED BLOOD CELL COUNT 4.22 mill/uL (4.2-5.4); RED CELL DISTRIBUTION WIDTH 13.7 % (11.6-14.6)
[2022-03-26] MEDS: ARIPIPRAZOLE 2MG TABLET PO SCH (09:00)
[2022-03-26] MEDS: METHOCARBAMOL 750MG TABLET PO SCH ×2 (09:05→20:35)
[2022-03-26] MEDS: PREDNISONE 20MG TABLET PO SCH (09:05)
[2022-03-26] MEDS: ASPIRIN 81MG TABLET PO SCH (09:05)
[2022-03-26] MEDS: GUAIFENESIN 600MG ER TABLET PO SCH ×2 (09:05→20:33)
[2022-03-26 09:18] LABS: CHLORIDE 104 mEq/L (98-107)
[2022-03-26 12:00] VITALS: BP 124/72
[2022-03-26 16:00] VITALS: BP 122/68
[2022-03-26 20:00] VITALS: BP 127/79
[2022-03-26] MEDS: ENOXAPARIN 40MG/0.4ML SYR SUBCUT SCH (20:33)
[2022-03-26] MEDS: TRAZODONE HCL 50MG TABLET PO SCH (20:35)
[2022-03-27] VITALS: BP 134/88
[2022-03-27 04:00] VITALS: BP 129/87
[2022-03-27] MEDS: OMEPRAZOLE 20MG CAPSULE EXTENDED RELEASE PO SCH (06:38)
[2022-03-27 07:48] VITALS: BP 105/76
[2022-03-27] MEDS: BUDESONIDE 0.5MG/2ML NEB HHN SCH ×2 (08:06→21:00)
[2022-03-27] MEDS: IPRATROPIUM/ALBUTEROL 0.5-3(2.5)MG/3ML NEB HHN SCH ×4 (08:06→21:06)
[2022-03-27] MEDS: ARIPIPRAZOLE 2MG TABLET PO SCH ×2 (09:00→09:36)
[2022-03-27] MEDS: PREDNISONE 20MG TABLET PO SCH (09:36)
[2022-03-27] MEDS: METHOCARBAMOL 750MG TABLET PO SCH ×2 (09:36→21:00)
[2022-03-27] MEDS: ASPIRIN 81MG TABLET PO SCH (09:36)
[2022-03-27] MEDS: GUAIFENESIN 600MG ER TABLET PO SCH ×2 (09:36→21:00)
[2022-03-27 11:55] VITALS: BP 100/68
[2022-03-27 15:55] VITALS: BP 129/75
[2022-03-27] MEDS: ENOXAPARIN 40MG/0.4ML SYR SUBCUT SCH (20:00)
[2022-03-27] MEDS: TRAZODONE HCL 50MG TABLET PO SCH (21:00)
[2022-03-28] MEDS: IPRATROPIUM/ALBUTEROL 0.5-3(2.5)MG/3ML NEB HHN SCH ×2 (04:00)
[2022-03-28] MEDS ORDERED: FAMOTIDINE 20MG TABLET PO SCH (07:40)
[2022-03-28 08:00] VITALS: BP 133/75
[2022-03-28] MEDS: ARIPIPRAZOLE 2MG TABLET PO SCH ×2 (08:47→08:54)
[2022-03-28] MEDS: METHOCARBAMOL 750MG TABLET PO SCH (08:47)
[2022-03-28] MEDS: GUAIFENESIN 600MG ER TABLET PO SCH (08:47)
[2022-03-28] MEDS: PREDNISONE 20MG TABLET PO SCH (08:47)
[2022-03-28] MEDS: ASPIRIN 81MG TABLET PO SCH (08:47)
[2022-03-28 12:00] VITALS: BP 105/61
[2022-03-28 14:01] VITALS: BP 105/61
== END 2022-03-28 15:00 | disposition home or self-care (01) | DRG 140 ==
LOC: ER 06:14 → 7WST 14:49
PROVIDERS: ADMIT Internal Medicine; ATTEND Internal Medicine
DX: J44.1 Chronic obstructive pulmonary disease with (acute) exacerbation (principal); J96.00 Acute respiratory failure, unspecified whether with hypoxia or hypercapnia; I10 Essential (primary) hypertension; G90.8 Other disorders of autonomic nervous system; F31.9 Bipolar disorder, unspecified; F17.210 Nicotine dependence, cigarettes, uncomplicated; F12.10 Cannabis abuse, uncomplicated; F14.10 Cocaine abuse, uncomplicated; Z99.81 Dependence on supplemental oxygen; Z79.899 Other long term (current) drug therapy; Z88.2 Allergy status to sulfonamides; Z79.82 Long term (current) use of aspirin; Z86.73 Personal history of transient ischemic attack (TIA), and cerebral infarction without residual deficits
CPT/HCPCS: 36415; 36600; 71045; 80048; 80053; 80305; 82375; 82553; 82805; 83880; 84484; 85025; 85379; 90732; 93005; 94640; 99285; J1650; J2920; J7512; J7626; Q0163

== ENCOUNTER 2022-06-11 02:53 | Emergency (ER) | payer OTHER ==
[~2022-06-11] VITALS: Ht 170.2 cm; Wt 60.0 kg
[2022-06-11 05:53] VITALS: BP 169/100
== END 2022-06-11 06:40 | disposition home or self-care (01) ==
LOC: ER 03:11
DX: F10.129 Alcohol abuse with intoxication, unspecified (principal); Y90.9 Presence of alcohol in blood, level not specified; I10 Essential (primary) hypertension; Z63.4 Disappearance and death of family member; J44.9 Chronic obstructive pulmonary disease, unspecified; Z86.73 Personal history of transient ischemic attack (TIA), and cerebral infarction without residual deficits
CPT/HCPCS: 99283

== ENCOUNTER 2022-08-11 03:57 | Emergency (ER) | payer OTHER ==
[~2022-08-11] VITALS: Ht 167.6 cm; Wt 64.0 kg
[2022-08-11 07:02] LABS: BASOPHILS % 0.9 % (0.0-2.0); EOSINOPHILS % 2.3 % (0.0-5.0); HEMATOCRIT. 40.9 % (36.0-48.0); HEMOGLOBIN. 13.7 g/dL (12.0-16.0); LYMPHOCYTES % 32.3 % (20.0-50.0); MEAN CORPUSCULAR VOLUME 89.9 fL (81.0-99.0); MEAN PLATELET VOLUME 7.6 fl (7.4-10.4); MONOCYTES % 5.5 % (2.0-8.0); PLATELET 331 x1000/uL (130-400); RED BLOOD CELL COUNT 4.55 mill/uL (4.2-5.4); RED CELL DISTRIBUTION WIDTH 13.6 % (11.6-14.6)
[2022-08-11 07:03] LABS: CHLORIDE 104 mEq/L (98-107)
[2022-08-11] MEDS ORDERED: OXYC-100 PO (09:17)
[2022-08-11 09:39] VITALS: BP 138/84
== END 2022-08-11 09:40 | disposition home or self-care (01) ==
LOC: ER 03:57
DX: R06.02 Shortness of breath (principal); M25.552 Pain in left hip; J44.1 Chronic obstructive pulmonary disease with (acute) exacerbation; Z79.899 Other long term (current) drug therapy
CPT/HCPCS: 36415; 71045; 73502; 80053; 83880; 84484; 85025; 99284

== ENCOUNTER 2023-01-10 13:03 | Emergency (ER) | payer OTHER ==
[~2023-01-10] VITALS: Ht 175.3 cm; Wt 67.0 kg
[~2023-01-10 13:03] MED LIST changes: +MONT4GRA2 PO; +OXYC-100 PO
[2023-01-10 13:08] VITALS: TEMP 98.7; O2SAT 100
[2023-01-10 13:15] VITALS: BP 119/50; PULSE 66; RESP 16
[2023-01-10] MEDS ORDERED: KETOROLAC 30MG/ML VIAL IM ONE (13:15)
[2023-01-10] MEDS ORDERED: IBUP-2029 MT (16:42)
== END 2023-01-10 18:19 | disposition home or self-care (01) ==
LOC: ER 13:14
DX: M17.12 Unilateral primary osteoarthritis, left knee (principal); J44.1 Chronic obstructive pulmonary disease with (acute) exacerbation; Z88.2 Allergy status to sulfonamides; Z79.899 Other long term (current) drug therapy
CPT/HCPCS: 99284; 73502; 73560; 96372; J1885

== ENCOUNTER 2023-01-11 00:36 | Emergency (ER) | payer OTHER ==
[~2023-01-11] VITALS: Ht 175.3 cm; Wt 64.0 kg
[2023-01-11 00:52] VITALS: O2SAT 100
[2023-01-11 02:25] VITALS: BP 122/69; PULSE 93; RESP 16; TEMP 98.3
== END 2023-01-11 02:55 | disposition home or self-care (01) ==
LOC: ER 00:45
DX: Z71.1 Person with feared health complaint in whom no diagnosis is made (principal); Z59.01 Sheltered homelessness; Z88.2 Allergy status to sulfonamides; Z79.899 Other long term (current) drug therapy; Z86.73 Personal history of transient ischemic attack (TIA), and cerebral infarction without residual deficits
CPT/HCPCS: 99283

== ENCOUNTER 2023-02-17 09:16 | Emergency (ER) | payer OTHER ==
[~2023-02-17] VITALS: Ht 167.6 cm; Wt 64.0 kg
[2023-02-17 09:20] VITALS: BP 192/110; PULSE 101; RESP 16; TEMP 98.8; O2SAT 100
[2023-02-20] MEDS ORDERED: MED4 MT (16:28)
== END 2023-02-17 09:55 | disposition home or self-care (01) ==
LOC: ER 09:34
DX: F19.20 Other psychoactive substance dependence, uncomplicated (principal); Z88.2 Allergy status to sulfonamides; Z79.899 Other long term (current) drug therapy
CPT/HCPCS: 99281; Z7610

== ENCOUNTER 2023-02-24 08:26 | Emergency (ER) | payer OTHER ==
[~2023-02-24] VITALS: Ht 167.6 cm; Wt 62.0 kg
[~2023-02-24 08:26] MED LIST changes: +MED4 MT
[2023-02-24 08:30] VITALS: BP 155/101; O2SAT 99
[2023-02-24] MEDS ORDERED: ACETAMINOPHEN 325MG TABLET PO ONE (09:00)
[2023-02-24 09:04] VITALS: PULSE 65; RESP 17; TEMP 99
== END 2023-02-24 09:08 | disposition home or self-care (01) ==
LOC: ER 08:37
DX: M25.562 Pain in left knee (principal); J44.1 Chronic obstructive pulmonary disease with (acute) exacerbation; Z88.2 Allergy status to sulfonamides; Z79.899 Other long term (current) drug therapy; Z86.73 Personal history of transient ischemic attack (TIA), and cerebral infarction without residual deficits
CPT/HCPCS: 99282; Z7610

== ENCOUNTER 2023-04-29 13:05 | Emergency (ER) | payer MEDICAID ==
[~2023-04-29] VITALS: Ht 167.6 cm; Wt 76.0 kg
[~2023-04-29 13:05] MED LIST changes: -ARIP2TAB3 PO; -DIPH25TA26 MT; +DULO30CA52 PO; -GUAI600T44 PO; -IBUP-2028 MT; -IBUP-2029 MT; +LEVO-65 MT; -LIDO1ADH23 TP; -LURA120T PO; -MONT4GRA2 PO; -OMEP20CA4 PO; -OXYC-100 PO; +TIOT18CA3 IH; +TIZA4CAP PO; -TOPUD PO; +TRAM50TA3 PO; -TRAZ-251 PO; -VARE1TAB21 PO
[2023-04-29 13:06] VITALS: TEMP 98.3; O2SAT 99
[2023-04-29] MEDS ORDERED: OXYCODONE HCL 5MG TABLET PO ONE (16:15)
[2023-04-29] MEDS ORDERED: KETOROLAC 60MG/2ML VIAL IM NR (17:15)
[2023-04-29 18:53] VITALS: BP 140/80; PULSE 80; RESP 19
== END 2023-04-29 19:17 | disposition home or self-care (01) ==
LOC: ER 13:21
DX: M79.605 Pain in left leg (principal); J44.1 Chronic obstructive pulmonary disease with (acute) exacerbation; Z88.2 Allergy status to sulfonamides
CPT/HCPCS: 99284; 73552; 72170; 73560; 73590; 96372; J1885

== ENCOUNTER 2023-06-03 02:33 | Emergency (ER) | payer OTHER ==
[~2023-06-03] VITALS: Ht 167.6 cm; Wt 59.0 kg
[~2023-06-03 02:33] MED LIST changes: -ALBU25PO2 INH; +FLUT1DIS3 INH; -LEVO-65 MT; -MED4 MT; -METH-653 MT
[2023-06-03 03:22] VITALS: BP 128/82; TEMP 98.6
[2023-06-03 04:04] LABS: BASOPHILS % 0.6 % (0.0-2.0); EOSINOPHILS % 0.6 % (0.0-5.0); HEMATOCRIT. 35.7 % (36.0-48.0); HEMOGLOBIN. 11.6 g/dL (12.0-16.0); LYMPHOCYTES % 38.6 % (20.0-50.0); MEAN CORPUSCULAR HGB CONC 32.5 g/dL (31.0-37.0); MEAN CORPUSCULAR VOLUME 92.3 fL (81.0-99.0); MEAN PLATELET VOLUME 7.4 fl (7.4-10.4); MONOCYTES % 6.5 % (2.0-8.0); NEUTROPHILS % 53.7 % (40.0-76.0); PLATELET 268 x1000/uL (130-400); RED BLOOD CELL COUNT 3.87 mill/uL (4.2-5.4); RED CELL DISTRIBUTION WIDTH 14.6 % (11.6-14.6); WHITE BLOOD COUNT 9.9 x1000/uL (4.5-11.0)
[2023-06-03 04:28] LABS: ALANINE AMINOTRANSFERASE 16 IU/L (10-49); ALBUMIN 4.5 g/dL (3.2-4.8); ASPARTATE AMINOTRANSFERASE 19 IU/L (<34); BILIRUBIN TOTAL 1.1 mg/dL (0.1-1.0); CALCIUM 9.7 mg/dL (8.7-10.4); CARBON DIOXIDE 27 mEq/L (21-32); CHLORIDE 106 mEq/L (98-107); CREATININE 0.6 mg/dL (0.6-1.0); GLUCOSE 72 mg/dL (70-105); POTASSIUM 3.3 mEq/L (3.5-5.1); PROTEIN TOTAL 7.5 g/dL (6.0-8.3); SODIUM 142 mEq/L (136-145); UREA NITROGEN BLOOD 13 mg/dL (9-23)
[2023-06-03 05:51] LABS: TROPONIN I HIGH SENSITIVITY 4 ng/L (3.0-34)
[2023-06-03] MEDS ORDERED: POTASSIUM CHLORIDE 20MEQ/PACKET PO NR (06:15)
[2023-06-03] MEDS ORDERED: IPRATROPIUM/ALBUTEROL 0.5-3(2.5)MG/3ML NEB HHN NR (06:15)
[2023-06-03] MEDS ORDERED: DEXAMETHASONE 2MG TABLET PO NR (06:15)
[2023-06-03] MEDS ORDERED: DEXAMETHASONE 4MG TABLET PO NR (07:00)
[2023-06-03 07:27] LABS: BG BASE EXCESS -0.1 mmol/L (-2.0-2.0); BG CARBOXYHEMOGLOBIN 3.5 % (0.5-1.5); BG DEOXYHEMOGLOBIN 3.4 % (0.0-5.0); BG FRACTION INSPIRED OXYGEN 21; BG HCO3 ACT 24.4 mmol/L (22.0-26.0); BG METHEMOGLOBIN 0.3 % (0.0-1.5); BG OXYGEN SATURATION 96.5 % (92.0-98.5); BG OXYHEMOGLOBIN 92.8 % (94.0-97.0); BG PCO2 39.4 mmHg (35.0-45.0); BG PO2 86.7 mmHg (75.0-100.0); BG SAMPLE SITE RIGHT RADIAL; BG TOTAL HEMOGLOBIN 12.2 g/dL (12.0-18.0); BG VENT MODE VBG - N/A
[2023-06-03 08:15] VITALS: PULSE 76; RESP 18; O2SAT 97
[2023-06-03] MEDS ORDERED: IPRATROPIUM/ALBUTEROL 0.5-3(2.5)MG/3ML NEB HHN ONE (09:15)
== END 2023-06-03 09:40 | disposition left against medical advice (07) ==
LOC: ER 02:33
DX: J44.1 Chronic obstructive pulmonary disease with (acute) exacerbation (principal); I10 Essential (primary) hypertension; Z88.2 Allergy status to sulfonamides
CPT/HCPCS: 80053; 83690; 85025; 84484; 36415; 71045; 94640; 82805; 82375; 93005; 99285; 36600; Z7610 ×3; J8540

== ENCOUNTER 2023-06-13 20:17 | Emergency (ER) | payer OTHER ==
[~2023-06-13] VITALS: Ht 167.6 cm; Wt 59.0 kg
[2023-06-13 20:41] VITALS: BP 117/71; PULSE 74; RESP 12; TEMP 98.4; O2SAT 99
[2023-06-13 21:17] LABS: BASOPHILS % 0.4 % (0.0-2.0); HEMATOCRIT. 36.1 % (36.0-48.0); HEMOGLOBIN. 12.2 g/dL (12.0-16.0); LYMPHOCYTES % 26.6 % (20.0-50.0); MEAN CORPUSCULAR HEMOGLOBIN 31.1 pg (28.0-32.0); MEAN CORPUSCULAR HGB CONC 33.8 g/dL (31.0-37.0); MEAN PLATELET VOLUME 7.4 fl (7.4-10.4); MONOCYTES % 1.8 % (2.0-8.0); NEUTROPHILS % 71.2 % (40.0-76.0); PLATELET 367 x1000/uL (130-400); RED BLOOD CELL COUNT 3.93 mill/uL (4.2-5.4); RED CELL DISTRIBUTION WIDTH 14.6 % (11.6-14.6); WHITE BLOOD COUNT 4.8 x1000/uL (4.5-11.0)
[2023-06-13 21:26] LABS: ALANINE AMINOTRANSFERASE 14 IU/L (10-49); ALBUMIN 4.9 g/dL (3.2-4.8); ASPARTATE AMINOTRANSFERASE 19 IU/L (<34); BILIRUBIN TOTAL 0.3 mg/dL (0.1-1.0); CALCIUM 9.8 mg/dL (8.7-10.4); CARBON DIOXIDE 27 mEq/L (21-32); CHLORIDE 103 mEq/L (98-107); CREATININE 0.6 mg/dL (0.6-1.0); GLUCOSE 119 mg/dL (70-105); POTASSIUM 3.8 mEq/L (3.5-5.1); PROTEIN TOTAL 7.6 g/dL (6.0-8.3); SODIUM 139 mEq/L (136-145); UREA NITROGEN BLOOD 11 mg/dL (9-23)
[2023-06-13 21:37] LABS: TROPONIN I HIGH SENSITIVITY < 4 ng/L (3.0-34)
[2023-06-15] MEDS ORDERED: P20 MT (17:03)
== END 2023-06-14 00:23 | disposition left against medical advice (07) ==
LOC: ER 20:17
DX: I10 Essential (primary) hypertension (principal); Z53.21 Procedure and treatment not carried out due to patient leaving prior to being seen by health care provider
CPT/HCPCS: 36415; 71045; 80053; 84484; 85025; 93005; 99281

== ENCOUNTER 2023-06-14 19:36 | Inpatient (IN) | payer OTHER ==
[~2023-06-14] VITALS: Ht 167.6 cm; Wt 59.9 kg
[2023-06-14] MEDS ORDERED: ACETAMINOPHEN 325MG TABLET PO STA (20:56)
[2023-06-14] MEDS ORDERED: ALBUTEROL (0.083%) 2.5MG/3ML NEB HHN ONE (21:00)
[2023-06-14] MEDS ORDERED: METHYLPREDNISOLONE SOD SUCC 40MG VIAL IV ONE (21:00)
[2023-06-14] MEDS: METHYLPREDNISOLONE SOD SUCC 125MG/2ML (ACT-O-VIAL) IV NR (22:04)
[2023-06-14] MEDS: ACETAMINOPHEN 325MG TABLET PO NR (22:04)
[2023-06-14 22:17] LABS: BASOPHILS % 0.7 % (0.0-2.0); EOSINOPHILS % 0.2 % (0.0-5.0); HEMATOCRIT. 36.2 % (36.0-48.0); LYMPHOCYTES % 31.6 % (20.0-50.0); MEAN CORPUSCULAR HEMOGLOBIN 30.2 pg (28.0-32.0); MEAN CORPUSCULAR HGB CONC 33.1 g/dL (31.0-37.0); MEAN CORPUSCULAR VOLUME 91.2 fL (81.0-99.0); MEAN PLATELET VOLUME 7.2 fl (7.4-10.4); MONOCYTES % 6.5 % (2.0-8.0); PLATELET 370 x1000/uL (130-400); RED BLOOD CELL COUNT 3.97 mill/uL (4.2-5.4); RED CELL DISTRIBUTION WIDTH 14.4 % (11.6-14.6); WHITE BLOOD COUNT 10.5 x1000/uL (4.5-11.0)
[2023-06-14 22:33] LABS: ALANINE AMINOTRANSFERASE 14 IU/L (10-49); ASPARTATE AMINOTRANSFERASE 21 IU/L (<34); BILIRUBIN TOTAL 0.5 mg/dL (0.1-1.0); CALCIUM 9.7 mg/dL (8.7-10.4); CARBON DIOXIDE 26 mEq/L (21-32); CHLORIDE 104 mEq/L (98-107); CREATININE 0.5 mg/dL (0.6-1.0); GLUCOSE 81 mg/dL (70-105); POTASSIUM 3.8 mEq/L (3.5-5.1); PROTEIN TOTAL 7.8 g/dL (6.0-8.3); SODIUM 140 mEq/L (136-145); TROPONIN I HIGH SENSITIVITY 4 ng/L (3.0-34); UREA NITROGEN BLOOD 11 mg/dL (9-23)
[2023-06-14 22:34] VITALS: PULSE 86; RESP 20; O2SAT 96
[2023-06-14] MEDS: ALBUTEROL (0.083%) 2.5MG/3ML NEB HHN NR (22:34)
[2023-06-14] MEDS: ALBUTEROL (0.083%) 2.5MG/3ML NEB HHN ONE (23:52)
[2023-06-14 23:53] VITALS: PULSE 78; RESP 18; O2SAT 94
[2023-06-15] VITALS (10 sets, daily range): BP systolic 103–137; BP diastolic 62–79; PULSE 67–87; RESP 14–20; TEMP 97.1–98
[2023-06-15] MEDS ORDERED: ACETAMINOPHEN 325MG TABLET PO PRN (01:15)
[2023-06-15] MEDS ORDERED: NALOXONE HCL 0.4MG/ML VIAL IV PRN (01:30)
[2023-06-15] MEDS: METHYLPREDNISOLONE SOD SUCC 40MG/ML (ACT-O-VIAL) IV SCH (06:01)
[2023-06-15] MEDS: BUDESONIDE 0.5MG/2ML NEB HHN SCH (08:43)
[2023-06-15] MEDS: IPRATROPIUM/ALBUTEROL 0.5-3(2.5)MG/3ML NEB HHN SCH (08:43)
[2023-06-15] MEDS: ENOXAPARIN 40MG/0.4ML SYR SUBCUT SCH (09:03)
[2023-06-15] MEDS: AMLODIPINE 10MG TABLET PO SCH (09:04)
[2023-06-15] MEDS: HYDROCODONE/ACETAMINOPHEN 5/325MG TABLET PO PRN (10:43)
[2023-06-15] MEDS ORDERED: P20 MT (17:03)
[2023-06-16 01:25] VITALS: PULSE 78; RESP 18
[2023-06-16 04:00] VITALS: BP 130/70; PULSE 70; RESP 20; TEMP 97.3
[2023-06-16 07:56] VITALS: BP 129/79; PULSE 80; TEMP 97.2; O2SAT 98
[2023-06-16 08:00] VITALS: BP 129/79; PULSE 80; RESP 20; TEMP 98.1
== END 2023-06-16 09:15 | disposition home or self-care (01) | DRG 140 ==
LOC: ER 19:36 → 7WST 23:21
PROVIDERS: ADMIT Internal Medicine; ATTEND Internal Medicine
DX: J44.1 Chronic obstructive pulmonary disease with (acute) exacerbation (principal); J96.20 Acute and chronic respiratory failure, unspecified whether with hypoxia or hypercapnia; F12.90 Cannabis use, unspecified, uncomplicated; F14.90 Cocaine use, unspecified, uncomplicated; Z20.822 Contact with and (suspected) exposure to COVID-19; F17.210 Nicotine dependence, cigarettes, uncomplicated; I10 Essential (primary) hypertension; Z88.2 Allergy status to sulfonamides; Z79.899 Other long term (current) drug therapy
CPT/HCPCS: 36415; 71045; 80053; 83880; 84484; 85025; 87426; 87804; 93005; 94640; 99285; J1650; J2920; J2930; J7626

== ENCOUNTER 2023-06-18 06:20 | Emergency (ER) | payer OTHER ==
[~2023-06-18] VITALS: Ht 167.6 cm; Wt 59.0 kg
[~2023-06-18 06:20] MED LIST changes: +P20 MT
[2023-06-18 06:58] VITALS: BP 175/52; PULSE 80; RESP 16; TEMP 97.9; O2SAT 100
[2023-06-18 08:56] LABS: BASOPHILS % 0.2 % (0.0-2.0); DIFFERENTIAL COMMENT 0; EOSINOPHILS % 0.3 % (0.0-5.0); HEMATOCRIT. 38.5 % (36.0-48.0); HEMOGLOBIN. 12.7 g/dL (12.0-16.0); LYMPHOCYTES % 38.4 % (20.0-50.0); MEAN CORPUSCULAR HEMOGLOBIN 30.1 pg (28.0-32.0); MEAN CORPUSCULAR VOLUME 91.3 fL (81.0-99.0); MEAN PLATELET VOLUME 7.5 fl (7.4-10.4); MONOCYTES % 6.4 % (2.0-8.0); NEUTROPHILS % 54.7 % (40.0-76.0); PLATELET 357 x1000/uL (130-400); RED BLOOD CELL COUNT 4.22 mill/uL (4.2-5.4); RED CELL DISTRIBUTION WIDTH 14.6 % (11.6-14.6); WHITE BLOOD COUNT 13.3 x1000/uL (4.5-11.0)
[2023-06-18 09:13] LABS: ALANINE AMINOTRANSFERASE 21 IU/L (10-49); ALBUMIN 4.4 g/dL (3.2-4.8); ASPARTATE AMINOTRANSFERASE 18 IU/L (<34); BILIRUBIN TOTAL 0.4 mg/dL (0.1-1.0); CALCIUM 9.2 mg/dL (8.7-10.4); CARBON DIOXIDE 28 mEq/L (21-32); CHLORIDE 101 mEq/L (98-107); CREATININE 0.4 mg/dL (0.6-1.0); GLUCOSE 61 mg/dL (70-105); POTASSIUM 3.9 mEq/L (3.5-5.1); PROTEIN TOTAL 6.8 g/dL (6.0-8.3); SODIUM 139 mEq/L (136-145); UREA NITROGEN BLOOD 16 mg/dL (9-23)
[2023-06-18 09:21] LABS: TROPONIN I HIGH SENSITIVITY < 4 ng/L (3.0-34)
== END 2023-06-18 12:30 | disposition home or self-care (01) ==
LOC: ER 06:20
DX: R06.02 Shortness of breath (principal); J44.9 Chronic obstructive pulmonary disease, unspecified; I10 Essential (primary) hypertension; Z79.899 Other long term (current) drug therapy; Z88.2 Allergy status to sulfonamides
CPT/HCPCS: 36415; 71045; 80053; 82803; 83880; 84484; 85025; 99284

== ENCOUNTER 2023-06-22 00:50 | Emergency (ER) | payer OTHER ==
[~2023-06-22] VITALS: Ht 167.6 cm; Wt 59.0 kg
[2023-06-22 00:53] VITALS: BP 147/94; TEMP 98.5
[2023-06-22 08:54] LABS: BASOPHILS % 0.6 % (0.0-2.0); EOSINOPHILS % 0.6 % (0.0-5.0); HEMATOCRIT. 40.1 % (36.0-48.0); HEMOGLOBIN. 13.2 g/dL (12.0-16.0); LYMPHOCYTES % 38.9 % (20.0-50.0); MEAN CORPUSCULAR HEMOGLOBIN 30.1 pg (28.0-32.0); MEAN CORPUSCULAR VOLUME 91.2 fL (81.0-99.0); MEAN PLATELET VOLUME 7.4 fl (7.4-10.4); MONOCYTES % 6.8 % (2.0-8.0); NEUTROPHILS % 53.1 % (40.0-76.0); PLATELET 338 x1000/uL (130-400); RED BLOOD CELL COUNT 4.39 mill/uL (4.2-5.4); RED CELL DISTRIBUTION WIDTH 14.4 % (11.6-14.6); WHITE BLOOD COUNT 14.9 x1000/uL (4.5-11.0)
[2023-06-22] MEDS: METHYLPREDNISOLONE SOD SUCC 125MG/2ML (ACT-O-VIAL) IM NR (09:11)
[2023-06-22 09:27] LABS: ALANINE AMINOTRANSFERASE 28 IU/L (10-49); ALBUMIN 4.9 g/dL (3.2-4.8); ASPARTATE AMINOTRANSFERASE 20 IU/L (<34); BILIRUBIN TOTAL 1.1 mg/dL (0.1-1.0); CALCIUM 9.6 mg/dL (8.7-10.4); CARBON DIOXIDE 31 mEq/L (21-32); CHLORIDE 103 mEq/L (98-107); CREATININE 0.6 mg/dL (0.6-1.0); GLUCOSE 67 mg/dL (70-105); POTASSIUM 3.8 mEq/L (3.5-5.1); PROTEIN TOTAL 7.8 g/dL (6.0-8.3); SODIUM 139 mEq/L (136-145); UREA NITROGEN BLOOD 15 mg/dL (9-23)
[2023-06-22 09:28] LABS: TROPONIN I HIGH SENSITIVITY < 4 ng/L (3.0-34)
[2023-06-22 09:40] VITALS: PULSE 84; RESP 20; O2SAT 95
[2023-06-22] MEDS: IPRATROPIUM BROMIDE (0.02%) 0.5MG/2.5ML NEB HHN NR (09:46)
[2023-06-22] MEDS: ALBUTEROL (0.083%) 2.5MG/3ML NEB HHN NR (09:46)
[2023-06-22] MEDS ORDERED: ALBU90AE INH (09:56)
[2023-06-22] MEDS ORDERED: P20 MT (09:56)
== END 2023-06-22 10:22 | disposition home or self-care (01) ==
LOC: ER 00:50
DX: J44.9 Chronic obstructive pulmonary disease, unspecified (principal); E11.649 Type 2 diabetes mellitus with hypoglycemia without coma; F17.200 Nicotine dependence, unspecified, uncomplicated; I10 Essential (primary) hypertension; Z79.899 Other long term (current) drug therapy; Z88.2 Allergy status to sulfonamides
CPT/HCPCS: 80053; 81025; 83880; 85025; 84484; 36415; 71045; 94640; 93005; 96372; 99285; J2930; Z7610 ×3

== ENCOUNTER 2023-08-28 08:29 | Emergency (ER) | payer OTHER ==
[~2023-08-28] VITALS: Ht 167.6 cm; Wt 59.0 kg
[~2023-08-28 08:29] MED LIST changes: -ALBU18HF2 IH; +ALBU90AE INH; +AMLO5TAB88 PO; +HYDR-4001 MT; +MONT-46 PO; -P20 MT; +QUET25TA PO; -TIOT18CA3 INH
[2023-08-28 08:36] VITALS: BP 128/100; TEMP 98.7; O2SAT 100
[2023-08-28 08:37] VITALS: PULSE 116; RESP 18
[2023-08-28] MEDS ORDERED: SODIUM CHLORIDE 0.9% 1,000 ML IV ONE (08:45)
== END 2023-08-28 09:01 | disposition left against medical advice (07) ==
LOC: ER 08:29
DX: R42 Dizziness and giddiness (principal); F41.9 Anxiety disorder, unspecified; F31.9 Bipolar disorder, unspecified; J44.9 Chronic obstructive pulmonary disease, unspecified; I10 Essential (primary) hypertension; F12.90 Cannabis use, unspecified, uncomplicated; F17.200 Nicotine dependence, unspecified, uncomplicated; F10.20 Alcohol dependence, uncomplicated; Z88.2 Allergy status to sulfonamides; Z98.890 Other specified postprocedural states; Y90.9 Presence of alcohol in blood, level not specified
CPT/HCPCS: 99281; J7030

== ENCOUNTER 2023-09-19 03:55 | Emergency (ER) | payer OTHER ==
[~2023-09-19] VITALS: Ht 167.6 cm; Wt 59.0 kg
[2023-09-19 04:10] VITALS: O2SAT 98
[2023-09-19] MEDS ORDERED: TRAMADOL 50MG TABLET PO ONE (05:45)
[2023-09-19] MEDS: KETOROLAC 60MG/2ML VIAL IM ONE (05:45)
[2023-09-19] MEDS: TRAMADOL 50MG TABLET PO NR (06:30)
[2023-09-19] MEDS ORDERED: TRAM-529 MT (14:13)
[2023-09-19] MEDS: HYDROCODONE/ACETAMINOPHEN 5/325MG TABLET PO ONE (14:15)
[2023-09-19 14:25] VITALS: BP 118/68; PULSE 65; RESP 18; TEMP 98.7
== END 2023-09-19 15:17 | disposition home or self-care (01) ==
LOC: ER 03:55
DX: N39.498 Other specified urinary incontinence (principal); J44.9 Chronic obstructive pulmonary disease, unspecified; D64.9 Anemia, unspecified; Z98.890 Other specified postprocedural states; Z88.2 Allergy status to sulfonamides
CPT/HCPCS: 99285; 72141; 72148; 96372; J1885

== ENCOUNTER 2023-09-24 03:17 | Emergency (ER) | payer OTHER ==
[~2023-09-24] VITALS: Ht 167.6 cm; Wt 59.0 kg
[~2023-09-24 03:17] MED LIST changes: +TRAM-529 MT
[2023-09-24 03:29] VITALS: TEMP 99; O2SAT 100
[2023-09-24 05:30] VITALS: BP 131/67; PULSE 81; RESP 16
[2023-09-24] MEDS: KETOROLAC 30MG/ML VIAL IM ONE (05:30)
[2023-09-24] MEDS: LIDOCAINE 5% PATCH TOP SCH (05:30)
[2023-09-24] MEDS: HYDROCODONE/ACETAMINOPHEN 5/325MG TABLET PO ONE (05:30)
[2023-09-24] MEDS ORDERED: TOPUD MT (06:42)
== END 2023-09-24 07:58 | disposition home or self-care (01) ==
LOC: ER 03:17
DX: D64.9 Anemia, unspecified (principal); J44.9 Chronic obstructive pulmonary disease, unspecified; F32.9 Major depressive disorder, single episode, unspecified; F12.10 Cannabis abuse, uncomplicated; Z79.899 Other long term (current) drug therapy
CPT/HCPCS: 99283; 96372; J1885

== ENCOUNTER 2023-11-12 20:36 | Emergency (ER) | payer MEDICARE, MEDICAID ==
[~2023-11-12] VITALS: Ht 162.6 cm; Wt 62.0 kg
[~2023-11-12 20:36] MED LIST changes: +TOPUD MT
[2023-11-12 20:42] VITALS: BP 106/75; TEMP 98.2; O2SAT 98
[2023-11-12] MEDS ORDERED: IPRATROPIUM BROMIDE (0.02%) 0.5MG/2.5ML NEB HHN STA (21:50)
[2023-11-12] MEDS ORDERED: ALBUTEROL (0.083%) 2.5MG/3ML NEB HHN SCH (22:00)
[2023-11-12] MEDS: PREDNISONE 20MG TABLET PO STA (22:08)
[2023-11-12 23:10] VITALS: PULSE 78; RESP 18
[2023-11-12 23:40] VITALS: PULSE 82; RESP 18
[2023-11-13 00:10] VITALS: PULSE 76; RESP 18
[2023-11-13] MEDS ORDERED: P50 MT (01:26)
[2023-11-13] MEDS ORDERED: AZIT250T12 MT (01:26)
== END 2023-11-13 06:08 | disposition home or self-care (01) ==
LOC: ER 20:36
DX: J44.1 Chronic obstructive pulmonary disease with (acute) exacerbation (principal); I10 Essential (primary) hypertension; F12.10 Cannabis abuse, uncomplicated; Z79.899 Other long term (current) drug therapy
CPT/HCPCS: 99291; 71045; J7512

== ENCOUNTER 2023-12-04 11:49 | Emergency (ER) | payer MEDICARE, MEDICAID ==
[~2023-12-04] VITALS: Ht 167.6 cm; Wt 60.0 kg
[~2023-12-04 11:49] MED LIST changes: +AZIT250T12 MT; +AZIT500T8 PO; +Fluticasone Propionate BOTHNSTRLS; +METH4TAB17 PO; +NICO1PAT10 TD; +P50 MT
[2023-12-04 12:01] VITALS: BP 147/87; PULSE 70; RESP 18; TEMP 98.1; O2SAT 100
[2023-12-04] MEDS ORDERED: ACETAMINOPHEN 500MG TABLET PO ONE (12:30)
== END 2023-12-04 12:25 | disposition left against medical advice (07) ==
LOC: ER 11:49
DX: R51.9 Headache, unspecified (principal); J44.9 Chronic obstructive pulmonary disease, unspecified; I10 Essential (primary) hypertension; F12.10 Cannabis abuse, uncomplicated; Z79.899 Other long term (current) drug therapy; Z88.2 Allergy status to sulfonamides
CPT/HCPCS: 99281

== ENCOUNTER 2024-01-16 20:07 | Emergency (ER) | payer MEDICARE, MEDICAID ==
[~2024-01-16] VITALS: Ht 167.6 cm; Wt 67.0 kg
[~2024-01-16 20:07] MED LIST changes: -TRAM-529 MT; +TRAM-534 MT
[2024-01-16 20:40] VITALS: O2SAT 98
[2024-01-16 20:53] VITALS: BP 106/63; PULSE 79; RESP 18; TEMP 97.8; O2SAT 100
[2024-01-16] MEDS ORDERED: T3 PO (23:06)
[2024-01-16] MEDS ORDERED: MORPHINE SULFATE 4 MG/ML INJ (FOR IV/IM USE) IM ONE (23:15)
[2024-01-16] MEDS ORDERED: ACETAMINOPHEN 325MG TABLET PO ONE (23:15)
[2024-01-17] MEDS ORDERED: ACETAMINOPHEN 325MG TABLET PO NR (02:30)
[2024-01-17] MEDS ORDERED: TRAMADOL 50MG TABLET PO ONE (02:45)
[2024-01-17] MEDS: KETOROLAC 15MG/ML VIAL IM ONE (02:57)
== END 2024-01-17 05:01 | disposition home or self-care (01) ==
LOC: ER 20:07
DX: M16.12 Unilateral primary osteoarthritis, left hip (principal); M17.12 Unilateral primary osteoarthritis, left knee; I10 Essential (primary) hypertension; J44.9 Chronic obstructive pulmonary disease, unspecified; F12.90 Cannabis use, unspecified, uncomplicated; Z98.890 Other specified postprocedural states; Z88.2 Allergy status to sulfonamides; Z79.899 Other long term (current) drug therapy
CPT/HCPCS: 99284; 73502; 73560; 96372; J1885

== ENCOUNTER 2024-02-02 12:23 | Emergency (ER) | payer MEDICARE, MEDICAID ==
[~2024-02-02] VITALS: Ht 165.1 cm; Wt 65.0 kg
[~2024-02-02 12:23] MED LIST changes: -ALBUTEROL 6.7GM HFA INHALER ORI ONE; -IBUP-2029 MT; -P20 PO
[2024-02-02 12:28] VITALS: BP 134/86; PULSE 90; RESP 18; TEMP 98; O2SAT 94
[2024-02-02] MEDS ORDERED: PREDNISONE 20MG TABLET PO ONE (12:45)
[2024-02-02] MEDS ORDERED: IPRATROPIUM/ALBUTEROL 0.5-3(2.5)MG/3ML NEB HHN ONE (12:45)
[2024-02-02] MEDS ORDERED: P20 PO (12:52)
[2024-02-02] MEDS ORDERED: ALBU90AE INH (19:03)
[2024-02-02] MEDS ORDERED: IBUP-2029 MT (19:03)
== END 2024-02-02 13:00 | disposition home or self-care (01) ==
LOC: ER 12:23
DX: J44.9 Chronic obstructive pulmonary disease, unspecified (principal); I10 Essential (primary) hypertension; Z88.2 Allergy status to sulfonamides; Z79.899 Other long term (current) drug therapy; Z98.890 Other specified postprocedural states
CPT/HCPCS: 99283

== ENCOUNTER → 2024-02-02 | Emergency (ER) | payer MEDICARE, MEDICAID ==
[~2024-02-02] VITALS: Ht 167.6 cm; Wt 57.0 kg
[~2024-02-02] MED LIST changes: +ALBUTEROL 6.7GM HFA INHALER ORI ONE; +IBUP-2029 MT; +P20 PO; +T3 PO
[2024-02-02 17:34] VITALS: O2SAT 100
[2024-02-02 19:00] VITALS: BP 129/83; PULSE 79; RESP 17; TEMP 37.00296; O2SAT 99
[2024-02-02 19:23] LABS: EOSINOPHILS % 1.7 % (0.0-5.0); HEMATOCRIT. 35.1 % (36.0-48.0); LYMPHOCYTES % 43.3 % (20.0-50.0); MEAN CORPUSCULAR HEMOGLOBIN 31.4 pg (28.0-32.0); MEAN CORPUSCULAR HGB CONC 34.1 g/dL (31.0-37.0); MEAN PLATELET VOLUME 8.1 fl (7.4-10.4); MONOCYTES % 6.2 % (2.0-8.0); NEUTROPHILS % 47.8 % (40.0-76.0); PLATELET 286 x1000/uL (130-400); RED BLOOD CELL COUNT 3.81 mill/uL (4.2-5.4); WHITE BLOOD COUNT 8.1 x1000/uL (4.5-11.0)
[2024-02-02 19:26] LABS: CHLORIDE 107 mEq/L (98-107); POTASSIUM 3.5 mEq/L (3.5-5.1); SODIUM 140 mEq/L (136-145)
[2024-02-02 19:27] LABS: CARBON DIOXIDE 27 mEq/L (21-32)
[2024-02-02 19:32] LABS: CREATININE 0.6 mg/dL (0.6-1.0); GLUCOSE 73 mg/dL (70-105); UREA NITROGEN BLOOD 13 mg/dL (9-23)
[2024-02-02 19:35] LABS: TROPONIN I HIGH SENSITIVITY < 4 ng/L (3.0-34)
[2024-02-02] MEDS: ALBUTEROL (0.083%) 2.5MG/3ML NEB HHN NR (19:35)
== END | disposition home or self-care (01) ==
LOC: ER 17:21
DX: S06.0X0A Concussion without loss of consciousness, initial encounter (principal); J44.9 Chronic obstructive pulmonary disease, unspecified; M54.2 Cervicalgia; I10 Essential (primary) hypertension; F12.10 Cannabis abuse, uncomplicated; Z79.899 Other long term (current) drug therapy; Z88.2 Allergy status to sulfonamides; Y08.89XA Assault by other specified means, initial encounter; Y93.89 Activity, other specified; Y92.89 Other specified places as the place of occurrence of the external cause; Y99.8 Other external cause status
CPT/HCPCS: 36415; 71045; 72170; 80048; 84484; 85025; 93005; 99285

== ENCOUNTER 2024-07-02 15:20 | Emergency (ER) | payer MEDICARE, MEDICAID ==
[~2024-07-02] VITALS: Ht 165.1 cm; Wt 70.0 kg
[~2024-07-02 15:20] MED LIST changes: -AMLO5TAB88 PO; +ASPI-1160 PO; -AZIT250T12 MT; -AZIT500T8 PO; -DULO30CA52 PO; -Fluticasone Propionate BOTHNSTRLS; -HYDR-4001 MT; -METH4TAB17 PO; -NICO1PAT10 TD; -P50 MT; -QUET25TA PO; -T3 PO; -TIZA4CAP PO; -TOPUD MT; -TRAM-534 MT; -TRAM50TA3 PO
[2024-07-02 15:23] VITALS: BP 146/106; TEMP 36.9; O2SAT 96
[2024-07-02 16:25] LABS: BG CARBOXYHEMOGLOBIN 7.5 % (0.5-1.5); BG DEOXYHEMOGLOBIN 6.3 % (0.0-5.0); BG FRACTION INSPIRED OXYGEN 21; BG HCO3 ACT 23.1 mmol/L (21.0-28.0); BG METHEMOGLOBIN 0.1 % (0.5-1.5); BG OXYGEN SATURATION 93.2 % (94.0-98.0); BG OXYHEMOGLOBIN 86.1 % (94.0-98.0); BG PCO2 36.6 mmHg (32.0-45.0); BG PH 7.418 (7.350-7.450); BG SAMPLE SITE LEFT BRACHIAL; BG TOTAL HEMOGLOBIN 13.5 g/dL (12.0-16.0); BG VENT MODE ROOM AIR
[2024-07-02 16:36] LABS: BASOPHILS % 0.5 % (0.0-2.0); EOSINOPHILS % 1.2 % (0.0-5.0); HEMATOCRIT. 38.9 % (36.0-48.0); HEMOGLOBIN. 12.6 g/dL (12.0-16.0); LYMPHOCYTES % 27.4 % (20.0-50.0); MEAN CORPUSCULAR HEMOGLOBIN 29.2 pg (28.0-32.0); MEAN CORPUSCULAR HGB CONC 32.3 g/dL (31.0-37.0); MEAN CORPUSCULAR VOLUME 90.4 fL (81.0-99.0); MEAN PLATELET VOLUME 7.6 fl (7.4-10.4); MONOCYTES % 5.7 % (2.0-8.0); NEUTROPHILS % 65.2 % (40.0-76.0); PLATELET 327 x1000/uL (130-400); WHITE BLOOD COUNT 14.4 x1000/uL (4.5-11.0)
[2024-07-02 16:42] LABS: CHLORIDE 106 mEq/L (98-107); POTASSIUM 3.8 mEq/L (3.5-5.1); SODIUM 139 mEq/L (136-145)
[2024-07-02 16:43] LABS: CALCIUM 9.6 mg/dL (8.7-10.4); CARBON DIOXIDE 26 mEq/L (21-32)
[2024-07-02 16:48] LABS: CREATININE 0.6 mg/dL (0.6-1.0); GLUCOSE 74 mg/dL (70-105); UREA NITROGEN BLOOD 11 mg/dL (9-23)
[2024-07-02 16:50] LABS: TROPONIN I HIGH SENSITIVITY 4 ng/L (3.0-34)
[2024-07-02] MEDS: IPRATROPIUM BROMIDE (0.02%) 0.5MG/2.5ML NEB HHN STA (17:03)
[2024-07-02] MEDS: ALBUTEROL (0.083%) 2.5MG/3ML NEB HHN SCH (17:03)
[2024-07-02 17:04] VITALS: PULSE 80; RESP 20
[2024-07-02 17:27] VITALS: PULSE 79; RESP 20
[2024-07-02] MEDS: DEXAMETHASONE 4MG/ML 1ML VIAL IV ONE (17:30)
[2024-07-02 17:48] VITALS: PULSE 89; RESP 20
== END 2024-07-03 00:17 | disposition home or self-care (01) ==
LOC: ER 15:20
DX: J44.1 Chronic obstructive pulmonary disease with (acute) exacerbation (principal); Z98.890 Other specified postprocedural states; I10 Essential (primary) hypertension; F17.210 Nicotine dependence, cigarettes, uncomplicated; Z86.73 Personal history of transient ischemic attack (TIA), and cerebral infarction without residual deficits; Z79.82 Long term (current) use of aspirin; Z79.51 Long term (current) use of inhaled steroids; Z79.899 Other long term (current) drug therapy; Z88.2 Allergy status to sulfonamides
CPT/HCPCS: 99285; 96374; 71045; 99406; 80048; 83880; 85025; 84484; 36415; 94640; 82805; 82375; 93005; 36600; J1100; A4606

== ENCOUNTER 2024-08-12 06:44 | Emergency (ER) | payer MEDICARE, MEDICAID ==
[~2024-08-12] VITALS: Ht 162.6 cm; Wt 58.0 kg
[2024-08-12 06:55] VITALS: TEMP 36.6
[2024-08-12] MEDS ORDERED: P50 MT (07:37)
[2024-08-12] MEDS ORDERED: IPRATROPIUM/ALBUTEROL 0.5-3(2.5)MG/3ML NEB HHN ONE (07:45)
[2024-08-12 07:51] VITALS: TEMP 97.9
[2024-08-12] MEDS: ACETAMINOPHEN 325MG TABLET PO ONE (07:51)
[2024-08-12] MEDS: PREDNISONE 20MG TABLET PO ONE (07:51)
[2024-08-12 09:35] VITALS: PULSE 62; RESP 20; O2SAT 100
[2024-08-12] MEDS: IPRATROPIUM/ALBUTEROL 0.5-3(2.5)MG/3ML NEB HHN NR (09:36)
[2024-08-12 10:52] VITALS: BP 128/75; PULSE 65; RESP 20; O2SAT 100
== END 2024-08-12 12:08 | disposition home or self-care (01) ==
LOC: ER 06:44
DX: J44.1 Chronic obstructive pulmonary disease with (acute) exacerbation (principal); I10 Essential (primary) hypertension; Z86.73 Personal history of transient ischemic attack (TIA), and cerebral infarction without residual deficits; Z79.82 Long term (current) use of aspirin; Z79.51 Long term (current) use of inhaled steroids; Z79.899 Other long term (current) drug therapy; Z98.890 Other specified postprocedural states; Z88.2 Allergy status to sulfonamides
CPT/HCPCS: 99284; 94640; J7512

== ENCOUNTER 2024-08-23 05:39 | Inpatient (IN) | payer MEDICARE, MEDICAID ==
[2024-08-23] VITALS (7 sets, daily range): BP systolic 107–139; BP diastolic 60–87; PULSE 63–85; RESP 18–20; TEMP 35.7–36.6; O2SAT 97–100
[~2024-08-23] VITALS: Ht 167.6 cm; Wt 72.1 kg
[2024-08-23] MEDS: IPRATROPIUM/ALBUTEROL 0.5-3(2.5)MG/3ML NEB HHN SCH (01:25)
[~2024-08-23 05:39] MED LIST changes: +P50 MT
[2024-08-23 07:53] LABS: BASOPHILS % 0.8 % (0.0-2.0); EOSINOPHILS % 0.5 % (0.0-5.0); HEMATOCRIT. 37.4 % (36.0-48.0); HEMOGLOBIN. 12.3 g/dL (12.0-16.0); LYMPHOCYTES % 23.5 % (20.0-50.0); MEAN CORPUSCULAR HEMOGLOBIN 29.8 pg (28.0-32.0); MEAN CORPUSCULAR HGB CONC 32.9 g/dL (31.0-37.0); MEAN CORPUSCULAR VOLUME 90.8 fL (81.0-99.0); MEAN PLATELET VOLUME 7.6 fl (7.4-10.4); MONOCYTES % 4.7 % (2.0-8.0); NEUTROPHILS % 70.5 % (40.0-76.0); PLATELET 323 x1000/uL (130-400); RED BLOOD CELL COUNT 4.12 mill/uL (4.2-5.4); RED CELL DISTRIBUTION WIDTH 14.3 % (11.6-14.6); WHITE BLOOD COUNT 11.5 x1000/uL (4.5-11.0)
[2024-08-23 07:58] LABS: CHLORIDE 105 mEq/L (98-107); POTASSIUM 3.5 mEq/L (3.5-5.1); SODIUM 142 mEq/L (136-145)
[2024-08-23 07:59] LABS: CARBON DIOXIDE 30 mEq/L (21-32)
[2024-08-23 08:04] LABS: CREATININE 0.6 mg/dL (0.6-1.0); GLUCOSE 91 mg/dL (70-105); UREA NITROGEN BLOOD 11 mg/dL (9-23)
[2024-08-23 08:20] LABS: CALCIUM 10.2 mg/dL (8.7-10.4)
[2024-08-23 08:22] LABS: TROPONIN I HIGH SENSITIVITY < 4 ng/L (3.0-34)
[2024-08-23 08:42] LABS: BG BASE EXCESS 0.7 mmol/L (-2.0-3.0); BG CARBOXYHEMOGLOBIN 9.5 % (0.5-1.5); BG DEOXYHEMOGLOBIN 16.3 % (0.0-5.0); BG FRACTION INSPIRED OXYGEN 21; BG METHEMOGLOBIN 0.3 % (0.5-1.5); BG OXYGEN SATURATION 81.9 % (94.0-98.0); BG OXYHEMOGLOBIN 73.9 % (94.0-98.0); BG PH 7.389 (7.350-7.450); BG PO2 44.6 mmHg (83.0-108.0); BG SAMPLE SITE LEFT RADIAL; BG TOTAL HEMOGLOBIN 12.8 g/dL (12.0-16.0); BG VENT MODE ROOM AIR
[2024-08-23 08:47] LABS: CLARITY URINE CLEAR (CLEAR); COLOR URINE YELLOW (YELLOW); GLUCOSE URINE NEGATIVE (NEGATIVE); KETONES URINE 1+ (NEGATIVE); LEUKOCYTE ESTERASE URINE 1+ (NEGATIVE); NITRITE URINE NEGATIVE (NEGATIVE); OCCULT BLOOD URINE NEGATIVE (NEGATIVE); PH URINE 5.5 (4.5-8.0); PROTEIN URINE NEGATIVE (NEGATIVE); SPECIFIC GRAVITY URINE 1.016 (1.005-1.030)
[2024-08-23 08:57] LABS: SQUAMOUS EPITHELIAL CELL URINE 1+ /lpf (RARE/1+)
[2024-08-23 08:58] LABS: MUCUS URINE 2+ /lpf (< = 2+)
[2024-08-23 08:59] LABS: BACTERIA URINE TRACE; CALCIUM OXALATE CRYSTALS URINE 1+ /lpf; RBC URINE NONE SEEN /hpf (0-2); WBC URINE 0-2 /hpf (0-2)
[2024-08-23] MEDS: IPRATROPIUM/ALBUTEROL 0.5-3(2.5)MG/3ML NEB HHN NR (09:17)
[2024-08-23] MEDS ORDERED: ONDANSETRON HCL 4MG/2ML INJ IV PRN (11:45)
[2024-08-23] MEDS ORDERED: ACETAMINOPHEN 325MG TABLET PO PRN (11:45)
[2024-08-23] MEDS: ASPIRIN 81MG TABLET PO SCH (20:51)
[2024-08-24] VITALS: BP 125/82; PULSE 65; RESP 19; TEMP 36.2; O2SAT 98
[2024-08-24 04:00] VITALS: BP 147/69; PULSE 74; RESP 22; TEMP 36.2; O2SAT 96
[2024-08-24 06:00] VITALS: PULSE 82; RESP 20
[2024-08-24 11:33] LABS: *AMPHETAMINES SCREEN URINE PRESUMPTIVE POSITIVE (NEGATIVE); *BARBITURATES SCREEN URINE NEGATIVE (NEGATIVE); *BENZODIAZEPINES SCREEN URINE NEGATIVE (NEGATIVE); *COCAINE SCREEN URINE PRESUMPTIVE POSITIVE (NEGATIVE); CANNABINOID URINE SCREEN PRESUMPTIVE POSITIVE (NEGATIVE); METHADONE URINE SCREEN NEGATIVE (NEGATIVE); OPIATES URINE SCREEN NEGATIVE (NEGATIVE); PHENCYCLIDINE URINE SCREEN NEGATIVE (NEGATIVE)
[2024-08-24 11:34] LABS: ECSTASY MDMA SCREEN URINE NEGATIVE (NEGATIVE)
[2024-08-24] MEDS ORDERED: MONTELUKAST SODIUM 10MG TABLET PO SCH (17:00)
== END 2024-08-24 08:40 | disposition left against medical advice (07) | DRG 189 ==
LOC: ER 05:55 → 6WST 09:34
PROVIDERS: ADMIT Internal Medicine; ATTEND Internal Medicine
DX: J96.00 Acute respiratory failure, unspecified whether with hypoxia or hypercapnia (principal); J44.9 Chronic obstructive pulmonary disease, unspecified; I10 Essential (primary) hypertension; Z53.29 Procedure and treatment not carried out because of patient's decision for other reasons; Z86.73 Personal history of transient ischemic attack (TIA), and cerebral infarction without residual deficits; Z88.2 Allergy status to sulfonamides
CPT/HCPCS: 36415; 36600; 71045; 80048; 80305; 81003; 82375; 82805; 83880; 84484; 85025; 93005; 94070; 94640; 99285; A4606

== ENCOUNTER 2024-09-05 23:04 | Emergency (ER) | payer MEDICARE, MEDICAID ==
[~2024-09-05] VITALS: Ht 170.2 cm; Wt 70.0 kg
[~2024-09-05 23:04] MED LIST changes: -FLUT1DIS3 INH; -P50 MT; -TIOT18CA3 IH
[2024-09-05 23:05] VITALS: BP 164/98; TEMP 36.5
[2024-09-06 02:31] VITALS: PULSE 83; RESP 22; O2SAT 98
[2024-09-06] MEDS: ALBUTEROL (0.083%) 2.5MG/3ML NEB HHN ONE (02:48)
[2024-09-06] MEDS: PREDNISONE 10MG TABLET PO ONE (05:03)
[2024-09-06 05:33] LABS: EOSINOPHILS % 1.2 % (0.0-5.0); HEMATOCRIT. 39.3 % (36.0-48.0); HEMOGLOBIN. 12.8 g/dL (12.0-16.0); LYMPHOCYTES % 40.6 % (20.0-50.0); MEAN CORPUSCULAR HEMOGLOBIN 29.5 pg (28.0-32.0); MEAN CORPUSCULAR HGB CONC 32.6 g/dL (31.0-37.0); MEAN CORPUSCULAR VOLUME 90.6 fL (81.0-99.0); MEAN PLATELET VOLUME 8.3 fl (7.4-10.4); MONOCYTES % 6.6 % (2.0-8.0); NEUTROPHILS % 50.6 % (40.0-76.0); PLATELET 350 x1000/uL (130-400); RED BLOOD CELL COUNT 4.34 mill/uL (4.2-5.4); RED CELL DISTRIBUTION WIDTH 14.8 % (11.6-14.6); WHITE BLOOD COUNT 12.1 x1000/uL (4.5-11.0)
[2024-09-06 05:36] LABS: CHLORIDE 102 mEq/L (98-107); POTASSIUM 3.4 mEq/L (3.5-5.1); SODIUM 140 mEq/L (136-145)
[2024-09-06 05:37] LABS: CARBON DIOXIDE 30 mEq/L (21-32)
[2024-09-06 05:38] LABS: CALCIUM 9.5 mg/dL (8.7-10.4)
[2024-09-06 05:43] LABS: CREATININE 0.8 mg/dL (0.6-1.0); GLUCOSE 116 mg/dL (70-105); UREA NITROGEN BLOOD 14 mg/dL (9-23)
[2024-09-06 05:44] LABS: TROPONIN I HIGH SENSITIVITY 4 ng/L (3.0-34)
[2024-09-06 05:49] VITALS: PULSE 79; RESP 20; O2SAT 99
[2024-09-06] MEDS: IPRATROPIUM BROMIDE (0.02%) 0.5MG/2.5ML NEB HHN STA (05:49)
[2024-09-06] MEDS: ALBUTEROL (0.083%) 2.5MG/3ML NEB HHN STA (05:49)
[2024-09-06] MEDS: IPRATROPIUM BROMIDE (0.02%) 0.5MG/2.5ML NEB HHN NR (06:24)
[2024-09-06] MEDS: ALBUTEROL (0.083%) 2.5MG/3ML NEB HHN NR (06:24)
== END 2024-09-06 08:12 | disposition home or self-care (01) ==
LOC: ER 23:04
DX: G89.29 Other chronic pain (principal); M54.2 Cervicalgia; J44.1 Chronic obstructive pulmonary disease with (acute) exacerbation; I10 Essential (primary) hypertension; Z88.2 Allergy status to sulfonamides; Z79.82 Long term (current) use of aspirin; Z98.890 Other specified postprocedural states
CPT/HCPCS: 99285; 72125; 71045; 80048; 83880; 85025; 84484; 36415; 94640; 93005; J7512; 94070; 94664; 98960; A4606

== ENCOUNTER 2024-11-21 02:14 | Emergency (ER) | payer MEDICARE, MEDICAID ==
[~2024-11-21] VITALS: Ht 167.6 cm; Wt 68.8 kg
[~2024-11-21 02:14] MED LIST changes: +ALBU18HF2 IH; +ALBU2.5V13 NEB; +AMLO5TAB88 PO; +FERR325T6 MT; +LISI10TA26 PO; +METO-539 PO; +MONT-46 MT; +P20 MT
[2024-11-21 02:47] VITALS: O2SAT 98
[2024-11-21] MEDS ORDERED: ACET-2708 MT (04:47)
[2024-11-21 04:53] VITALS: TEMP 36.6
[2024-11-21] MEDS: ACETAMINOPHEN 325MG TABLET PO ONE (05:00)
[2024-11-21 05:30] VITALS: BP 116/78; PULSE 81; RESP 21; O2SAT 98
== END 2024-11-21 05:48 | disposition home or self-care (01) ==
LOC: ER 02:14
DX: M25.562 Pain in left knee (principal); I10 Essential (primary) hypertension; J44.9 Chronic obstructive pulmonary disease, unspecified; Z79.899 Other long term (current) drug therapy; Z86.73 Personal history of transient ischemic attack (TIA), and cerebral infarction without residual deficits; Z88.2 Allergy status to sulfonamides
CPT/HCPCS: 99282; A4606

== ENCOUNTER 2024-12-15 04:40 | Emergency (ER) | payer MEDICARE, MEDICAID ==
[~2024-12-15] VITALS: Ht 162.6 cm; Wt 66.0 kg
[~2024-12-15 04:40] MED LIST changes: +ACET-2708 MT
[2024-12-15 04:43] VITALS: O2SAT 97
[2024-12-15 05:25] LABS: BASOPHILS % 0.7 % (0.0-2.0); EOSINOPHILS % 1.0 % (0.0-5.0); HEMATOCRIT. 40.7 % (36.0-48.0); HEMOGLOBIN. 13.1 g/dL (12.0-16.0); LYMPHOCYTES % 39.8 % (20.0-50.0); MEAN PLATELET VOLUME 7.9 fl (7.4-10.4); MONOCYTES % 6.8 % (2.0-8.0); NEUTROPHILS % 51.7 % (40.0-76.0); PLATELET 336 x1000/uL (130-400); RED BLOOD CELL COUNT 4.47 mill/uL (4.2-5.4); RED CELL DISTRIBUTION WIDTH 14.1 % (11.6-14.6)
[2024-12-15 05:28] LABS: CREATININE 0.6 mg/dL (0.6-1.0)
[2024-12-15 05:29] LABS: ETHANOL BLOOD 130 mg/dL (<10); UREA NITROGEN BLOOD 14 mg/dL (9-23)
[2024-12-15 05:30] LABS: ASPARTATE AMINOTRANSFERASE 19 IU/L (<34)
[2024-12-15 05:31] LABS: BILIRUBIN DIRECT < 0.1 mg/dL (<=3.0); BILIRUBIN TOTAL 0.3 mg/dL (0.1-1.0); PROTEIN TOTAL 7.9 g/dL (6.0-8.3)
[2024-12-15] MEDS: PANTOPRAZOLE SODIUM 40 MG/VIAL IV ONE (06:36)
[2024-12-15] MEDS: ONDANSETRON HCL 4MG/2ML INJ IV ONE (06:36)
[2024-12-15] MEDS: SODIUM CHLORIDE 0.9% 1,000 ML IV ONE (06:36)
[2024-12-15 09:04] LABS: CLARITY URINE CLEAR (CLEAR); COLOR URINE YELLOW (YELLOW); GLUCOSE URINE NEGATIVE (NEGATIVE); KETONES URINE NEGATIVE (NEGATIVE); LEUKOCYTE ESTERASE URINE NEGATIVE (NEGATIVE); NITRITE URINE NEGATIVE (NEGATIVE); OCCULT BLOOD URINE NEGATIVE (NEGATIVE); PH URINE 5.5 (4.5-8.0); PROTEIN URINE NEGATIVE (NEGATIVE); SPECIFIC GRAVITY URINE 1.013 (1.005-1.030); UROBILINOGEN URINE 0.2 E.U./dL (0.2-1.0)
[2024-12-15] MEDS ORDERED: ONDA4TAB50 MT (09:09)
[2024-12-15] MEDS ORDERED: TOPUD MT (09:09)
[2024-12-15] MEDS ORDERED: PANT40SU MT (09:09)
[2024-12-15 10:02] LABS: *AMPHETAMINES SCREEN URINE NEGATIVE (NEGATIVE); *BARBITURATES SCREEN URINE NEGATIVE (NEGATIVE); *BENZODIAZEPINES SCREEN URINE NEGATIVE (NEGATIVE); *COCAINE SCREEN URINE PRESUMPTIVE POSITIVE (NEGATIVE); CANNABINOID URINE SCREEN PRESUMPTIVE POSITIVE (NEGATIVE); METHADONE URINE SCREEN NEGATIVE (NEGATIVE); OPIATES URINE SCREEN NEGATIVE (NEGATIVE); PHENCYCLIDINE URINE SCREEN PRESUMTIVE POSITIVE (NEGATIVE)
[2024-12-15 10:08] VITALS: BP 118/72; PULSE 64; RESP 14; TEMP 36.9; O2SAT 100
[2024-12-15 10:24] LABS: ECSTASY MDMA SCREEN URINE NEGATIVE (NEGATIVE)
== END 2024-12-15 10:09 | disposition home or self-care (01) ==
LOC: ER 05:38
DX: F10.10 Alcohol abuse, uncomplicated (principal); K29.00 Acute gastritis without bleeding; I10 Essential (primary) hypertension; J44.9 Chronic obstructive pulmonary disease, unspecified; F17.200 Nicotine dependence, unspecified, uncomplicated; Z79.82 Long term (current) use of aspirin; Z79.899 Other long term (current) drug therapy; Z86.73 Personal history of transient ischemic attack (TIA), and cerebral infarction without residual deficits; Z88.2 Allergy status to sulfonamides; Y90.6 Blood alcohol level of 120-199 mg/100 ml
CPT/HCPCS: 80076; 80305; 80048; 81003; 80320; 83690; 85025; 36415; 71045; 74176; 96365; 96366; 96375; 99285; J2405; J2470; J7030; G0480

== ENCOUNTER 2025-03-05 02:06 | Emergency (ER) | payer MEDICARE, MEDICAID ==
[~2025-03-05] VITALS: Ht 165.1 cm; Wt 64.0 kg
[~2025-03-05 02:06] MED LIST changes: -ACET-2708 MT; -ALBU18HF2 IH; -ALBU2.5V13 NEB; +FAMO20TA8 MT; +METH4TAB95 MT; -MONT-46 MT; -P20 MT
[2025-03-05] MEDS ORDERED: PREDNISONE 20MG TABLET PO ONE (05:30)
[2025-03-05] MEDS: IPRATROPIUM BROMIDE (0.02%) 0.5MG/2.5ML NEB HHN ONE (05:45)
[2025-03-05 05:46] VITALS: PULSE 83; RESP 22; O2SAT 97
[2025-03-05] MEDS: ALBUTEROL (0.083%) 2.5MG/3ML NEB HHN ONE ×2 (05:46→08:54)
[2025-03-05 06:15] LABS: BASOPHILS % 0.4 % (0.0-2.0); EOSINOPHILS % 1.1 % (0.0-5.0); HEMATOCRIT. 39.0 % (36.0-48.0); HEMOGLOBIN. 13.1 g/dL (12.0-16.0); LYMPHOCYTES % 30.8 % (20.0-50.0); MEAN PLATELET VOLUME 7.4 fl (7.4-10.4); MONOCYTES % 5.7 % (2.0-8.0); NEUTROPHILS % 62.0 % (40.0-76.0); PLATELET 341 x1000/uL (130-400); RED BLOOD CELL COUNT 4.32 mill/uL (4.2-5.4); RED CELL DISTRIBUTION WIDTH 13.8 % (11.6-14.6)
[2025-03-05 06:32] LABS: CREATININE 0.6 mg/dL (0.6-1.0); UREA NITROGEN BLOOD 15 mg/dL (9-23)
[2025-03-05 06:33] LABS: TROPONIN I HIGH SENSITIVITY < 4 ng/L (3.0-34)
[2025-03-05 06:34] LABS: ASPARTATE AMINOTRANSFERASE 14 IU/L (<34)
[2025-03-05 06:35] LABS: BILIRUBIN DIRECT 0.2 mg/dL (<=3.0); BILIRUBIN TOTAL 0.5 mg/dL (0.1-1.0); PROTEIN TOTAL 6.9 g/dL (6.0-8.3)
[2025-03-05 08:12] VITALS: BP 134/84; TEMP 36.9; O2SAT 100
[2025-03-05 08:54] VITALS: PULSE 84; RESP 20; O2SAT 99
[2025-03-05] MEDS ORDERED: ALBU90AE INH (09:01)
[2025-03-05] MEDS ORDERED: P50 PO (09:01)
[2025-03-05] MEDS: METHYLPREDNISOLONE SOD SUCC 125MG/2ML (ACT-O-VIAL) IV ONE (09:13)
[2025-03-05] MEDS ORDERED: PREDNISONE 20MG TABLET PO NR (09:15)
== END 2025-03-05 09:56 | disposition home or self-care (01) ==
LOC: ER 02:06 → CANBEDREQ 08:35 → ER 09:56
DX: J44.1 Chronic obstructive pulmonary disease with (acute) exacerbation (principal); I10 Essential (primary) hypertension; Z79.52 Long term (current) use of systemic steroids; Z79.82 Long term (current) use of aspirin; Z88.2 Allergy status to sulfonamides; Z79.899 Other long term (current) drug therapy
CPT/HCPCS: 99284; 71045; 80076; 80048; 83880; 85025; 84484; 36415; 94640; J7512; 94760

== ENCOUNTER 2025-04-09 05:01 | Emergency (ER) | payer MEDICARE, MEDICAID ==
[~2025-04-09] VITALS: Ht 167.6 cm; Wt 66.4 kg
[~2025-04-09 05:01] MED LIST changes: +P50 PO
[2025-04-09 05:11] VITALS: O2SAT 98
[2025-04-09 05:14] VITALS: BP 142/76; PULSE 97; RESP 18; TEMP 36.7; O2SAT 99
== END 2025-04-09 06:06 | disposition home or self-care (01) ==
LOC: ER 05:01
DX: J44.89 Other specified chronic obstructive pulmonary disease (principal); I10 Essential (primary) hypertension; Z76.0 Encounter for issue of repeat prescription; Z79.899 Other long term (current) drug therapy; Z88.2 Allergy status to sulfonamides
CPT/HCPCS: 99282

== ENCOUNTER 2025-05-01 17:31 | Inpatient (IN) | payer MEDICARE, MEDICAID ==
[~2025-05-01] VITALS: Ht 170.2 cm; Wt 64.4 kg
[~2025-05-01 17:31] MED LIST changes: -ASPI-1160 PO; -FAMO20TA8 MT; -FERR325T6 MT; -LISI10TA26 PO; -METH4TAB95 MT; -METO-539 PO; -P50 PO
[2025-05-01 17:59] VITALS: PULSE 82; RESP 20; O2SAT 94
[2025-05-01] MEDS: IPRATROPIUM BROMIDE (0.02%) 0.5MG/2.5ML NEB HHN SCH (17:59)
[2025-05-01] MEDS: ALBUTEROL (0.083%) 2.5MG/3ML NEB HHN SCH (17:59)
[2025-05-01] MEDS: DEXAMETHASONE 10 MG/ML VIAL IV ONE (18:04)
[2025-05-01] MEDS: SODIUM CHLORIDE 0.9% 1,000 ML IV ONE (18:04)
[2025-05-01 18:17] LABS: BASOPHILS % 0.8 % (0.0-2.0); EOSINOPHILS % 1.1 % (0.0-5.0); HEMATOCRIT. 37.5 % (36.0-48.0); HEMOGLOBIN. 12.0 g/dL (12.0-16.0); LYMPHOCYTES % 33.7 % (20.0-50.0); MEAN PLATELET VOLUME 7.9 fl (7.4-10.4); MONOCYTES % 4.3 % (2.0-8.0); NEUTROPHILS % 60.1 % (40.0-76.0); PLATELET 268 x1000/uL (130-400); RED BLOOD CELL COUNT 4.00 mill/uL (4.2-5.4); RED CELL DISTRIBUTION WIDTH 14.9 % (11.6-14.6)
[2025-05-01 18:19] LABS: BG BASE EXCESS -0.4 mmol/L (-2.0-3.0); BG CARBOXYHEMOGLOBIN 0.7 % (0.5-1.5); BG DEOXYHEMOGLOBIN 1.3 % (0.0-5.0); BG FLOW(L/min) 8.00 L/min; BG FRACTION INSPIRED OXYGEN 60; BG HCO3 ACT 26.4 mmol/L (21.0-28.0); BG METHEMOGLOBIN 0.3 % (0.5-1.5); BG OXYGEN SATURATION 98.7 % (94.0-98.0); BG OXYHEMOGLOBIN 97.7 % (94.0-98.0); BG PCO2 52.0 mmHg (32.0-45.0); BG PH 7.323 (7.350-7.450); BG PO2 139.2 mmHg (83.0-108.0); BG SAMPLE SITE RIGHT RADIAL; BG TOTAL HEMOGLOBIN 12.8 g/dL (12.0-16.0); BG VENT MODE MASK - HHN
[2025-05-01 18:31] LABS: CREATININE 0.6 mg/dL (0.6-1.0)
[2025-05-01 18:32] LABS: ETHANOL BLOOD < 10 mg/dL (<10); PROTEIN TOTAL 5.1 g/dL (6.0-8.3); TROPONIN I HIGH SENSITIVITY 5 ng/L (3.0-34); UREA NITROGEN BLOOD 13 mg/dL (9-23)
[2025-05-01 18:33] LABS: ASPARTATE AMINOTRANSFERASE 17 IU/L (<34)
[2025-05-01 18:34] LABS: BILIRUBIN DIRECT 0.1 mg/dL (<=3.0); BILIRUBIN TOTAL 0.5 mg/dL (0.1-1.0)
[2025-05-01 20:32] LABS: INFLUENZA TYPE A Presumptive Negative (Pres. Neg.); INFLUENZA TYPE B Presumptive Negative (Pres. Neg.)
[2025-05-01 20:33] LABS: RESPIRATORY SYNCYTIAL VIRUS Not Detected (Not Detectd)
[2025-05-01 21:03] LABS: TROPONIN I HIGH SENSITIVITY 4 ng/L (3.0-34)
[2025-05-01 23:25] VITALS: BP 115/74; PULSE 75; RESP 17; TEMP 35.8; O2SAT 95
[2025-05-02 04:00] VITALS: BP 96/65; PULSE 62; RESP 19; TEMP 36.3; O2SAT 96
[2025-05-02] MEDS ORDERED: IPRATROPIUM/ALBUTEROL 0.5-3(2.5)MG/3ML NEB HHN PRN (04:45)
[2025-05-02] MEDS: METHYLPREDNISOLONE SOD SUCC 40MG/ML (ACT-O-VIAL) IV SCH (05:51)
[2025-05-02] MEDS: MAGNESIUM 2 G PREMIX 50 ML IV NR (05:52)
[2025-05-02] MEDS: POTASSIUM CHLORIDE 20MEQ TABLET SR PO NR (05:54)
[2025-05-02 08:18] LABS: BASOPHILS % 0.0 % (0.0-2.0); EOSINOPHILS % 0.0 % (0.0-5.0); HEMATOCRIT. 34.6 % (36.0-48.0); HEMOGLOBIN. 11.7 g/dL (12.0-16.0); LYMPHOCYTES % 9.1 % (20.0-50.0); MEAN PLATELET VOLUME 8.4 fl (7.4-10.4); MONOCYTES % 2.6 % (2.0-8.0); NEUTROPHILS % 88.3 % (40.0-76.0); PLATELET 261 x1000/uL (130-400); RED BLOOD CELL COUNT 3.80 mill/uL (4.2-5.4); RED CELL DISTRIBUTION WIDTH 14.5 % (11.6-14.6)
[2025-05-02 08:23] LABS: CREATININE 0.6 mg/dL (0.6-1.0); UREA NITROGEN BLOOD 12 mg/dL (9-23)
[2025-05-02] MEDS ORDERED: ONDANSETRON HCL 4MG/2ML INJ IV PRN (08:30)
[2025-05-02] MEDS ORDERED: ACETAMINOPHEN 325MG TABLET PO PRN (08:30)
[2025-05-02] MEDS: PANTOPRAZOLE SODIUM 40 MG/VIAL IV SCH (08:45)
[2025-05-02] MEDS: AMLODIPINE 5MG TABLET PO SCH (08:45)
[2025-05-02] MEDS: ENOXAPARIN 40MG/0.4ML SYR SUBCUT SCH (08:46)
[2025-05-02] MEDS ORDERED: BUDESONIDE 0.5MG/2ML NEB HHN SCH (09:00)
[2025-05-02 09:01] LABS: HEPATITIS C AB NON REACTIVE (Neg) (Negative)
[2025-05-02 12:00] VITALS: BP 127/70; PULSE 66; RESP 15; TEMP 36; O2SAT 96
[2025-05-02] MEDS ORDERED: MONTELUKAST SODIUM 10MG TABLET PO SCH (17:00)
== END 2025-05-02 14:50 | disposition left against medical advice (07) | DRG 190 ==
LOC: ER 17:31 → EDBEDREQTM 21:32 → EDBEDREQ 21:32 → 7WST 22:40
PROVIDERS: ADMIT Internal Medicine; ATTEND Internal Medicine
DX: J44.1 Chronic obstructive pulmonary disease with (acute) exacerbation (principal); J96.01 Acute respiratory failure with hypoxia; E11.9 Type 2 diabetes mellitus without complications; I10 Essential (primary) hypertension; Z20.822 Contact with and (suspected) exposure to COVID-19; Z53.29 Procedure and treatment not carried out because of patient's decision for other reasons; Z79.899 Other long term (current) drug therapy; Z88.2 Allergy status to sulfonamides
CPT/HCPCS: 36415; 36600; 71045; 80048; 80076; 80320; 82140; 82375; 82805; 83735; 83880; 84484; 85025; 86705; 87340; 87420; 87426; 87804; 93005; 94070; 94640; 94664; 96361; 96374; 98960; 99285; J1100; J2919; J3475; J7030; G0480